=== PATIENT | male | born 1930 | race Caucasian/White ===

== ENCOUNTER 2020-05-06 11:09 | Inpatient (IN) | payer MEDICARE, OTHER ==
[~2020-05-06] VITALS: Ht 182 cm; Wt 86.4 kg
[2020-05-06] VITALS (7 sets, daily range): BP systolic 106–139; BP diastolic 56–73
[2020-05-06] MEDS ORDERED: LACTATED RINGERS 1,000 ML IV ONE ×2 (11:32→14:14)
[2020-05-06 11:33] LABS: ABG BASE EXCESS -0.7 MMOL/L (-2.5-2.5); ABG OXYGEN SATURATION 94 % (94-100); ABG PCO2 28 MMHG (35-45); ABG PH 7.51 (7.37-7.43); ABG PO2 66 MMHG (79-93); ABG TCO2 22.8 MMOL/L (21.0-31.0); ALLENS TEST YES-POS; INSPIRED O2 4 L
[2020-05-06 11:34] LABS: PATIENT TEMP 99.6; VENTILATOR NO
[2020-05-06 11:44] LABS: BASOPHILS % (AUTO) 0 % (0-10); EOSINOPHILS % (AUTO) 0 % (0-10); MEAN CORPUSCULAR VOLUME 97 fL (80-99); NEUTROPHILS # (AUTO) 4.9 10^3/uL (1.8-7.8)
[2020-05-06] MEDS ORDERED: ACETAMINOPHEN 500 MG TAB (TYLENOL) PO PRN ×2 (11:45→14:30)
[2020-05-06] MEDS ORDERED: PIPERACILLIN SODIUM/TAZOBACTAM 4.5 GM in NS (IVPB) 100 ML IV ONE (11:45)
[2020-05-06] MEDS ORDERED: VANCOMYCIN 2000 MG/NS 500 ML IVPB IV NR ×2 (11:45)
[2020-05-06] MEDS ORDERED: VANCOMYCIN INJECTION 1,000 MG in NS (IVPB) 250 ML IV SCH (11:45)
[2020-05-06 11:46] LABS: HEMATOCRIT 40 % (40-54); HEMOGLOBIN 13.9 g/dL (13.3-17.7); LYMPHOCYTES # (AUTO) 0.4 10^3/uL (1.0-4.0); LYMPHOCYTES % (AUTO) 7 % (12-44); MEAN CORPUSCULAR HEMOGLOBIN 34 pg (25-34); MEAN CORPUSCULAR HGB CONC 35 g/dL (32-36); MEAN PLATELET VOLUME 9.9 fL (9.0-12.2); MONOCYTES # (AUTO) 0.2 10^3/uL (0.0-1.0); MONOCYTES % (AUTO) 4 % (0-12); NEUTROPHILS % (AUTO) 88 % (42-75); PLATELET COUNT 124 10^3/uL (130-400); WHITE BLOOD COUNT 5.5 10^3/uL (4.3-11.0)
--- NOTE | 2020-05-06 11:46 | ED Respiratory ---
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 He was diagnosed a little over a week ago with COVID 19. Today he called EMS from his home because he was having increasing worsening shortness of breath. No mention of oxygen saturations but they did put him on 2 L by nasal cannula and had bumped up to 4 L by the time he arrived in the ER. His sats were in the upper 80s with mildly labored breathing. EMS also reports he vomited 4 times on route. They were EMT crew and were not able to give him any anti-emetics. Patient denies he has any known drug allergies. He has profound hardness of hearing and is also hypoxic and therefore a very difficult historian. EMS do report he has some baseline dementia. EMS gave the phone number for family which did not connect to any family member. The patient's never been in this hospital before. When asked why EMS took this patient in respiratory distress across [place] to [place] instead of the emergency room and [place] they were told to come here because [place] does not accept COVID 19 patients. The patient's daughter called the ER. The patient only uses lisinopril 20 mg daily. The patient has no predetermined CODE STATUS. Full code. Family states the patient is on oxygen at baseline at home. Allergies and Home Medications Allergies Coded Allergies: codeine (Verified Allergy, Unknown, 05/06/20) Patient Home Medication List Home Medication List Reviewed: Yes Review of Systems Review of Systems Constitutional: see HPI (Limited review of systems secondary to patient's clinical presentation.); No chills; fever; No malaise EENTM: No ear discharge, No ear pain Respiratory: No cough; short of breath Cardiovascular: No chest pain, No edema Gastrointestinal: nausea, vomiting All Other Systems Reviewed Negative Unless Noted: Yes Past Rhhqhcx-Vrlgtj-Vvwddi Hx Patient Social History Alcohol Use: Denies Use Recreational Drug Use: No (his only) Smoking Status: Unknown if Ever Smoked Recent Foreign Travel: No Contact w/Someone Who Travel: No Recent Infectious Disease Expo: No Physical Exam Vital Signs - First Documented 05/06/20 11:14 Temp 37.5 Pulse 81 Resp 20 B/P (MAP) 138/77 (97) Pulse Ox 91 O2 Delivery Nasal Cannula Capillary Refill : Less Than 3 Seconds Height: '" Weight: lbs. oz. kg; 30.00 BMI Method: General Appearance: moderate distress Eyes: Bilateral Eye Normal Inspection, Bilateral Eye PERRL, Bilateral Eye EOMI HEENT: PERRL/EOMI, normal ENT inspection, pharynx normal Neck: full range of motion, supple, normal inspection Respiratory: respiratory distress (dugy-vj-tuiklbug with oxygen sats in the upper 80s on 4 L by nasal cannula.), rhonchi (bilateral) Cardiovascular: normal peripheral pulses, regular rate, rhythm Gastrointestinal: normal bowel sounds, non tender, soft Extremities: non-tender, normal inspection, normal capillary refill Focused Exam Sepsis Stage: Sepsis Possible Source: Pulmonary Lactate Level 05/06/20 11:26: Lactic Acid Level 2.03*H Time of Focused Exam: 13:38 Respiratory: Lungs Clear, Normal Breath Sounds, No Accessory Muscle Use, Respiratory Distress (96% on 8 L by oxygen mask.) Cardiovascular: Regular Rate, Rhythm, No Edema, Normal Peripheral Pulses Capillary Refill: Less Than 3 Seconds Peripheral Pulses: 2+ Radial Pulses (R), 2+ Radial Pulses (L) Skin: normal color, warm/dry Lactic Acid Level Laboratory Tests Test 05/06/20 11:26 Lactic Acid Level 2.03 MMOL/L (0.50-2.00) *H Within 3hrs of presentation: Admin fluids, Admin 30ml/kg IBW due to BMI>30 (reduced fluids based on ideal body weight and was COVID-19), Admin ABX, Blood cultures prior to ABX's, Focus exam, Lactate level Progress/Results/Core Measures Suspected Sepsis Recent Fever Within 48 Hours: Yes Infection Criteria Present: Documented Infection New/Unexplained Altered Menta: No Sepsis Screen: No Definite Risk SIRS Temperature: Pulse: 81 Respiratory Rate: 20 Laboratory Tests 05/06/20 11:26: White Blood Count 5.5 Blood Pressure 138 /77 Mean: 97 05/06/20 11:26: Lactic Acid Level 2.03*H Laboratory Tests 05/06/20 11:26: Creatinine 1.63H, INR Comment 1.0, Platelet Count 124L, Total Bilirubin 0.7 Results/Orders Lab Results Laboratory Tests Test 05/06/20 11:26 05/06/20 13:05 Range/Units White Blood Count 5.5 4.3-11.0 10^3/uL Red Blood Count 4.12 L 4.30-5.52 10^6/uL Hemoglobin 13.9 13.3-17.7 g/dL Hematocrit 40 40-54 % Mean Corpuscular Volume 97 80-99 fL Mean Corpuscular Hemoglobin 34 25-34 pg Mean Corpuscular Hemoglobin Concent 35 32-36 g/dL Red Cell Distribution Width 12.7 10.0-14.5 % Platelet Count 124 L 130-400 10^3/uL Mean Platelet Volume 9.9 9.0-12.2 fL Immature Granulocyte % (Auto) 1 % Neutrophils (%) (Auto) 88 H 42-75 % Lymphocytes (%) (Auto) 7 L 12-44 % Monocytes (%) (Auto) 4 0-12 % Eosinophils (%) (Auto) 0 0-10 % Basophils (%) (Auto) 0 0-10 % Neutrophils # (Auto) 4.9 1.8-7.8 10^3/uL Lymphocytes # (Auto) 0.4 L 1.0-4.0 10^3/uL Monocytes # (Auto) 0.2 0.0-1.0 10^3/uL Eosinophils # (Auto) 0.0 0.0-0.3 10^3/uL Basophils # (Auto) 0.0 0.0-0.1 10^3/uL Immature Granulocyte # (Auto) 0.1 0.0-0.1 10^3/uL Neutrophils % (Manual) 87 % Lymphocytes % (Manual) 9 % Monocytes % (Manual) 4 % Blood Morphology Comment NORMAL Prothrombin Time 13.3 12.2-14.7 SEC INR Comment 1.0 0.8-1.4 Activated Partial Thromboplast Time 31 24-35 SEC D-Dimer 6.37 H 0.00-0.49 UG/ML Blood Gas Puncture Site LT RAD Blood Gas Patient Temperature 99.6 Arterial Blood pH 7.51 H 7.37-7.43 Arterial Blood Partial Pressure CO2 28 L 35-45 MMHG Arterial Blood Partial Pressure O2 66 L 79-93 MMHG Arterial Blood HCO3 22 L 23-27 MMOL/L Arterial Blood Total CO2 22.8 21.0-31.0 MMOL/L Arterial Blood Oxygen Saturation 94 94-100 % Arterial Blood Base Excess -0.7 -2.5-2.5 MMOL/L Thierno Test YES-POS Blood Gas Ventilator Setting NO Blood Gas Inspired Oxygen 4 L Sodium Level 136 135-145 MMOL/L Potassium Level 3.6 3.6-5.0 MMOL/L Chloride Level 101 98-107 MMOL/L Carbon Dioxide Level 22 21-32 MMOL/L Anion Gap 13 5-14 MMOL/L Blood Urea Nitrogen 30 H 7-18 MG/DL Creatinine 1.63 H 0.60-1.30 MG/DL Estimat Glomerular Filtration Rate 40 BUN/Creatinine Ratio 18 Glucose Level 112 H 70-105 MG/DL Lactic Acid Level 2.03 *H 0.50-2.00 MMOL/L Calcium Level 8.6 8.5-10.1 MG/DL Corrected Calcium 8.8 8.5-10.1 MG/DL Total Bilirubin 0.7 0.1-1.0 MG/DL Aspartate Amino Transf (AST/SGOT) 34 5-34 U/L Alanine Aminotransferase (ALT/SGPT) 37 0-55 U/L Alkaline Phosphatase 46 40-136 U/L C-Reactive Protein High Sensitivity 6.45 H 0.00-0.50 MG/DL Total Protein 6.4 6.4-8.2 GM/DL Albumin 3.7 3.2-4.5 GM/DL Procalcitonin 0.13 H <0.10 NG/ML My Orders Orders - EMIL GARCIA Arterial Blood Gas (05/06/20 11:30) Cbc With Automated Diff (05/06/20 11:32) Comprehensive Metabolic Panel (05/06/20 11:32) Blood Culture (05/06/20 11:32) Sputum Culture (05/06/20 11:32) Urinalysis (05/06/20 11:32) Urine Culture (05/06/20 11:32) Protime With Inr (05/06/20 11:32) Partial Thromboplastin Time (05/06/20 11:32) Chest 1 View, Ap/Pa Only (05/06/20 11:32) Acetaminophen Tablet (Tylenol Tablet) (05/06/20 11:45) Ed Iv/Invasive Line Start (05/06/20 11:32) Ed Iv/Invasive Line Start (05/06/20 11:32) Vital Signs Adult Sepsis Patie Q15M (05/06/20 11:32) O2 (05/06/20 11:32) Remove Rings In Anticipation O (05/06/20 11:32) Lactic Acid Analyzer (05/06/20 11:32) Influenza A And B Antigens (05/06/20 11:32) Lactated Ringers (Lr 1000 Ml Iv Solution (05/06/20 11:32) Piperacillin Sodium/Tazobactam (Zosyn Vi (05/06/20 11:45) Vancomycin Injection (Vancomycin Injecti (05/06/20 11:45) Dexamethasone Injection (Decadron Inje (05/06/20 11:45) Vancomycin Injection (Vancomycin Injecti (05/06/20 11:45) Manual Differential (05/06/20 11:26) Ondansetron Injection (Zofran Injectio (05/06/20 12:00) Hs C Reactive Protein (05/06/20 11:51) Procalcitonin (Pct) (05/06/20 11:51) Fibrin Degradation Products (05/06/20 11:51) Medications Given in ED Current Medications Medications Dose Ordered Sig/Yeni Route Start Time Stop Time Status Last Admin Dose Admin Acetaminophen 1,000 mg ONCE PRN PO 05/06/20 11:45 05/06/20 12:14 DC 05/06/20 12:14 1,000 MG Dexamethasone Sodium Phosphate 6 mg ONCE ONCE IV 05/06/20 11:45 05/06/20 11:46 DC 05/06/20 12:14 6 MG Lactated Ringer's 1,000 ml @ 0 mls/hr Q0M ONCE IV 05/06/20 11:32 05/06/20 11:39 DC 05/06/20 12:14 1,000 MLS/HR Ondansetron HCl 8 mg ONCE ONCE IVP 05/06/20 12:00 05/06/20 12:01 DC 05/06/20 12:14 8 MG Piperacillin Sod/ Tazobactam Sod 4.5 gm/Sodium Chloride 100 ml @ 200 mls/hr ONCE ONCE IV 05/06/20 11:45 05/06/20 12:14 DC 05/06/20 12:14 200 MLS/HR Vital Signs/I&O 05/06/20 11:14 Temp 37.5 Pulse 81 Resp 20 B/P (MAP) 138/77 (97) Pulse Ox 91 O2 Delivery Nasal Cannula Capillary Refill : Less Than 3 Seconds Blood Pressure Mean: 97 Progress Note : Time: 11:49 Progress Note Plan to do a septic workup however because of his COVID-19 status were going to keep him dry and just use 1 L of lactated Ringer's. We are going to get an ABG and we have bumped him up to 8 L by oxygen mask which is keeping his oxygen saturation 94-95%. We have a chest x-ray and sputum cultures if possible. Because of his rhonchorous breath sounds and copious vomit all over his shirt I suspect he may have aspirated we are going to cover him with Zosyn and vancomycin. 8 mg Zofran IV. Dexamethasone. Pro calcitonin, CRP, d-dimer. Diagnostic Imaging Diagonstic Imaging: Xray Plain Films/CT/US/NM/MRI: chest Reviewed: Reviewed by Me Departure Communication (Admissions) Time/Spoke to Admitting Phy: 12:[address] Mireles and she agrees to admit the patient to cardiac stepdown. Impression Primary Impression: COVID-19 Additional Impressions: Acute on chronic respiratory failure with hypoxemia Pneumonia Qualified Codes: J18.9 - Pneumonia, unspecified organism Sepsis Qualified Codes: A41.9 - Sepsis, unspecified organism; R65.20 - Severe sepsis without septic shock; J96.01 - Acute respiratory failure with hypoxia Disposition: ADMITTED INPATIENT Condition: Stable Admissions Decision to Admit Reason: Admit from ER (General) Decision to Admit/Date: May 06, 2020 Time/Decision to Admit Time: 12:00 Departure-Patient Inst. Referrals: UNKNOWN (PCP/Family) Primary Care Physician EMIL GARCIA May 06, 2020 11:46
[2020-05-06 11:51] LABS: ALBUMIN 3.7 GM/DL (3.2-4.5); POTASSIUM 3.6 MMOL/L (3.6-5.0)
[2020-05-06 11:52] LABS: CALCIUM 8.6 MG/DL (8.5-10.1)
[2020-05-06 11:54] LABS: TOTAL PROTEIN 6.4 GM/DL (6.4-8.2)
[2020-05-06 11:55] LABS: BILIRUBIN,TOTAL 0.7 MG/DL (0.1-1.0)
[2020-05-06 11:57] LABS: CREATININE SERUM 1.63 MG/DL (0.60-1.30)
[2020-05-06 12:00] LABS: PROTHROMBIN TIME PATIENT 13.3 SEC (12.2-14.7)
[2020-05-06] MEDS ORDERED: ONDANSETRON 4 MG/2 ML (SDV) Z0FRAN IVP ONE (12:00)
[2020-05-06 12:12] LABS: LYMPHOCYTES % (MANUAL) 9 %; MONOCYTES % (MANUAL) 4 %; NEUTROPHILS % (MANUAL) 87 %; RBC MORPH NORMAL
--- NOTE | 2020-05-06 13:03 | Diagnostic Imaging Report ---
EXAMINATION: Chest 1 view HISTORY: sepsis COMPARISON: None available. FINDINGS: Heart size and pulmonary vasculature are normal. Patchy left basilar airspace opacities. No pleural effusion or pneumothorax. The osseous structures are intact. IMPRESSION: 1. Left basilar atelectasis or consolidation. Dictated by: Dictated on workstation # [id number]
[2020-05-06 13:18] LABS: BILIRUBIN,URINE NEGATIVE (NEGATIVE); CLARITY,URINE CLEAR; COLOR,URINE YELLOW; GLUCOSE, URINE (UA) NEGATIVE (NEGATIVE); KETONES,URINE NEGATIVE (NEGATIVE); LEUKOCYTE ESTERASE ,URINE NEGATIVE (NEGATIVE); NITRITE,URINE NEGATIVE (NEGATIVE); PH,URINE 5.5 (5-9); PROTEIN,URINE 2+ (NEGATIVE)
[2020-05-06 13:29] LABS: AMORPHOUS SEDIMENT,UR RARE AMOR URATES /LPF; BACTERIA,URINE TRACE /HPF; WBC,URINE RARE /HPF
[2020-05-06] MEDS ORDERED: IBUPROFEN 800 MG (MOTRIN) TAB PO PRN (14:30)
[2020-05-06] MEDS ORDERED: ONDANSETRON 4 MG/2 ML (SDV) Z0FRAN IV PRN (14:30)
[2020-05-06] MEDS: LACTATED RINGERS 1,000 ML IV SCH ×2 (14:36→21:19)
--- NOTE | 2020-05-06 14:36 | NUR ---
CR 1.63; CR CL ~38 (USED ADJ WT 86 KG); ACTUAL WT 100 KG; VANCO 2000 MG IV GIVEN IN ER; CONTINUE WITH VANCO 1500 MG IV DAILY X 2 MORE DAYS
[2020-05-06] MEDS ORDERED: CATHETER FLUSH 10 ML SYR IV PRN (14:45)
[2020-05-06] MEDS ORDERED: ENOXAPARIN 40 MG/0.4 ML (LOVENOX) SYR SC SCH (15:00)
[2020-05-06] MEDS ORDERED: LIDOCAINE UROJET 2% GEL 10 ML PKG ONE (15:10)
[2020-05-06] MEDS ORDERED: LIDOCAINE UROJET 2% GEL 10 ML PKG TOP NR (15:15)
[2020-05-06] MEDS: PIPERACILLIN/TAZO 4.5 GM/NS 100 ML IV SCH ×2 (18:03)
[2020-05-06] MEDS: RT-ALBUTEROL INHALER HFA (VENTOLIN HFA) 18 GM IH SCH ×2 (20:03→21:55)
[2020-05-07] VITALS (8 sets, daily range): BP systolic 107–149; BP diastolic 55–70
[2020-05-07 03:26] LABS: BASOPHILS % (AUTO) 0 % (0-10); EOSINOPHILS % (AUTO) 0 % (0-10); HEMATOCRIT 31 % (40-54); HEMOGLOBIN 10.9 g/dL (13.3-17.7); LYMPHOCYTES # (AUTO) 0.3 10^3/uL (1.0-4.0); LYMPHOCYTES % (AUTO) 9 % (12-44); MEAN CORPUSCULAR HEMOGLOBIN 34 pg (25-34); MEAN CORPUSCULAR HGB CONC 35 g/dL (32-36); MEAN CORPUSCULAR VOLUME 97 fL (80-99); MONOCYTES # (AUTO) 0.1 10^3/uL (0.0-1.0); MONOCYTES % (AUTO) 4 % (0-12); NEUTROPHILS # (AUTO) 2.5 10^3/uL (1.8-7.8); NEUTROPHILS % (AUTO) 86 % (42-75); PLATELET COUNT 85 10^3/uL (130-400)
[2020-05-07 03:41] LABS: ALBUMIN 2.9 GM/DL (3.2-4.5); POTASSIUM 3.8 MMOL/L (3.6-5.0)
[2020-05-07 03:42] LABS: CALCIUM 7.7 MG/DL (8.5-10.1)
[2020-05-07 03:43] LABS: TOTAL PROTEIN 5.1 GM/DL (6.4-8.2)
[2020-05-07 03:45] LABS: BILIRUBIN,TOTAL 0.4 MG/DL (0.1-1.0)
[2020-05-07 03:47] LABS: CREATININE SERUM 1.56 MG/DL (0.60-1.30)
[2020-05-07] MEDS: PIPERACILLIN/TAZO 4.5 GM/NS 100 ML IV SCH ×6 (03:57→20:32)
[2020-05-07] MEDS: LACTATED RINGERS 1,000 ML IV SCH ×2 (03:57→13:28)
[2020-05-07] MEDS: RT-ALBUTEROL INHALER HFA (VENTOLIN HFA) 18 GM IH SCH ×6 (04:22→22:44)
[2020-05-07] MEDS ORDERED: REMDESIVIR INJ (NON-FORMULARY) 200 MG in NS (IVPB) 210 ML IV NR (08:45)
--- NOTE | 2020-05-07 08:46 | Pulmonary Consultation ---
History of Present Illness History of Present Illness Date Seen by Provider: May 07, 2020 Time Seen by Provider: 08:41 Date of Admission History of Present Illness 89yo poor historian with recent dx of COVID 1 wk ago presented to ED via EMS from [place] secondary to worsening SOB and n/v. Pt was found to be hypoxic and was placed on 4 liter NC. hypoxia and continued to worsen and is currently on a oxy mask. No prior episodes like this in the past. Allergies and Home Medications Allergies Coded Allergies: codeine (Verified Allergy, Unknown, 05/06/20) Past Sovwqay-Ocymgv-Snuaeb Hx Patient Social History Alcohol Use: Denies Use Recreational Drug Use: No (his only) Smoking Status: Unknown if Ever Smoked 2nd Hand Smoke Exposure: No Recent Foreign Travel: No Contact w/Someone Who Travel: No Recent Infectious Disease Expo: Yes Recent Hopitalizations: Yes (COVID 19) Immunizations Up To Date Tetanus Booster (TDap): Unknown Family Medical History Cardiovascular disease G8 BROTHER Cervical cancer 19 MOTHER Diabetes mellitus G8 BROTHER Myocardial infarction G8 BROTHER Review of Systems Time Seen by Provider: 08:45 Sepsis Event Evaluation Height, Weight, BMI Height: '" Weight: lbs. oz. kg; 26.71 BMI Method: Exam Exam Vital Signs Date Time Temp Pulse Resp B/P (MAP) Pulse Ox O2 Delivery O2 Flow Rate FiO2 05/07/20 07:51 95 OxyMask 5.00 05/07/20 04:22 98 OxyMask 5.00 05/07/20 04:00 45 16 132/66 (88) OxyMask 5.00 05/07/20 04:00 OxyMask 5.00 05/07/20 03:55 47 05/07/20 00:00 OxyMask 8.00 05/07/20 00:00 35.8 58 18 107/55 (72) 93 OxyMask 5.00 05/06/20 21:56 98 OxyMask 10.00 05/06/20 21:00 93 OxyMask 8.00 05/06/20 20:00 35.9 47 18 122/60 (80) 96 OxyMask 8.00 05/06/20 20:00 OxyMask 8.00 05/06/20 16:06 OxyMask 8.00 05/06/20 15:58 35.9 66 22 139/64 (89) 94 OxyMask 8.00 05/06/20 14:50 37.3 63 20 108/73 96 OxyMask 8.00 05/06/20 14:36 55 97 05/06/20 14:35 55 22 115/65 (82) 97 OxyMask 8.00 05/06/20 14:15 54 20 106/68 (81) 97 OxyMask 8.00 05/06/20 14:09 OxyMask 8.00 05/06/20 14:07 36.3 63 20 108/56 (73) 96 OxyMask 8.00 05/06/20 13:59 37.0 76 18 132/75 95 OxyMask 8.00 05/06/20 11:14 37.5 81 20 138/77 (97) 91 Nasal Cannula I & O 05/07/20 07:00 Intake Total 1670 ml Output Total 625 ml Balance 1045 ml Height & Weight Height: '" Weight: lbs. oz. kg; 26.71 BMI Method: Respiratory: Lungs Clear, Normal Breath Sounds, No Accessory Muscle Use, Respiratory Distress (96% on 8 L by oxygen mask.) Cardiovascular: Regular Rate, Rhythm, No Edema, Normal Peripheral Pulses Capillary Refill: Less Than 3 Seconds Peripheral Pulses: 2+ Radial Pulses (R), 2+ Radial Pulses (L) Gastrointestinal: normal bowel sounds, non tender, soft Results Lab Laboratory Tests 05/06/20 11:26 05/07/20 03:12 Assessment/Plan Assessment/Plan Acute respiratory failure secondary to COVID -19 -Pt is outside of window for Remdesivir -Symptoms started on 04/24 -Will give convalescent plasma -Change oxy mask to Vapotherm -Decadron -Increase Lovenox to theraputic dosing PNA -Fermin culture -Continue Zosyn and Vanco for now -IS Bradycardia -Not currently on BB or CCB -Check EKG -Check troponin -Consult cardiology Chronic dementia Anemia -Monitor -Protonix TOMEKA JOYNER DO May 07, 2020 08:46
[2020-05-07 10:52] LABS: MAGNESIUM 1.9 MG/DL (1.6-2.4); PHOSPHORUS 3.1 MG/DL (2.3-4.7)
[2020-05-07] MEDS ORDERED: VANCOMYCIN 1500 MG/NS 500 ML IVPB IV SCH ×2 (12:00)
[2020-05-07] MEDS ORDERED: UBID100C44 PO (12:31)
[2020-05-07] MEDS ORDERED: CHOL10002 PO (12:31)
[2020-05-07] MEDS ORDERED: LISI-552 PO (12:31)
--- NOTE | 2020-05-07 12:31 | NUR ---
SPOKE WITH THE PTS (CHARMAINE) AND CALLED [facility] TO COMPLETE THE MED REC LISINOPRIL 20MG WAS LAST FILLED 04-11-2020 #90/90DS PT WAS GIVEN DEXAMETHASONE 6MG #7 ON 04-28-2020 BUT ACCORDING TO CHARMAINE PT FINISHED THIS THERAPY WHEN I CALLED [facility] THE PHARMACIST LET ME KNOW ON 04-28-2020 THE PT WAS GIVEN A SCRIPT FOR XARELTO 10MG #30/30DS (CHARMAINE DID NOT MENTION THIS MEDICATION) BUT SHORTLY AFTER IT WAS PICKED UP CHARMAINE CALLED AND SPOKE WITH THE PHARMACIST AND LET HER KNOW THAT THIS MEDICATION WAS ONLY PRESCRIBED TO THE PT BC HE WAS COVID +. CHARMAINE WENT ON TO TELL THE [facility] THAT THE PT IS A "BLEEDER" AND NO DOES NOT NEED ANY MEDICATION LIKE THAT AND THAT SHE WOULD NOT BE GIVING HIM XARELTO. WHEN I SPOKE WITH THE [facility] TODAY SHE HAD BEEN CONCERNED AND WANTED ME TO KNOW THIS INFORMATION. I LET HER KNOW I WOULD PASS IT ALONG TO THE PROVIDER OTC MEDS: VIT D COQ10
--- NOTE | 2020-05-07 13:16 | Physical Therapy Evaluation ---
PT Evaluation-General Medical Diagnosis Admission Date May 06, 2020 at 13:30 Medical Diagnosis: ARF; COVID + Onset Date: May 06, 2020 Therapy Diagnosis Therapy Diagnosis: weakness; abn gait Precautions Precautions/Isolations: Airborne Isolation, Contact Isolation, Droplet Isolation, Fall Prevention Referral Physician: Petty Reason for Referral: Evaluation/Treatment Medical History Pertinent Medical History: Dementia Additional Medical History anemia Current History Admitted to [facility] with dx of acute respiratory failure paired with COVID +. Pt contacted EMS due to worsening SOA. Reviewed History: Yes Social History Home: Single Level Current Living Status: Alone Prior Prior Level of Function SCALE: Activities may be completed with or without assistive devices. 0-Vqlfkeyayk-icfuosv completes the activity by him/herself with no assistance from a helper. 5-Set-up or Clean-up Assistance-helper sets up or cleans up; patient completes activity. [place] assists only prior to or following the activity. 4-Supervision or Touching Assistance-helper provides verbal cues and/or touching/steadying and/or contact guard assistance as patient completes activity. Assistance may be provided throughout the activity or intermittently. 3-Partial/Moderate Assistance-helper does LESS THAN HALF the effort. [place] lifts, holds or supports trunk or limbs, but provides less than half the effort. 2-Substantial/Maximal Assistance-helper does MORE THAN HALF the effort. [place] lifts or holds trunk or limbs and provides more than half the effort. 5-Ybzeandcu-khtall does ALL the effort. Patient does none of the effort to complete the activity. Or, the assistance of 2 or more helpers is required for the patient to complete the activity. If activity was not attempted, code reason: 7-Patient Refused. 9-Not Applicable-not attempted and the patient did not perform the activity before the current illness, exacerbation or injury. 10-Not Attempted due to Environmental Limitations-(lack of equipment, weather restraints, etc.). 88-Not Attempted due to Medical Conditions or Safety Concerns. Bed Mobility: 6 Transfers (B,C,W/C): 6 Gait: 6 PT Evaluation-Current Subjective Pt agrees to PT. Due to limited hearing and ability to understand this therapist with mask and face shield, history difficult to obtain. Pt/Family Goals "I want to go home" Objective Patient Orientation: Person, Confused (slight), Place, Time, Situation Attachments: Oxygen (in situ during and post treatment. ), Mayes Catheter, IV Bed alarm activated post treatment with bedrails up x 4 ROM/Strength ROM Lower Extremities WFL Strength Lower Extremities grossly 4-/5 throughout Integumentary/Posture Integumentary Refer to nursing notes for full assessment. Bowel Incontinence: No Bladder Incontinence: Mayes Cath Posture Rounded shoulders. Neuromuscular (Tone, Coordination, Reflexes) intact and functional Sensory Vision: Functional Hearing: Impaired Hand Dominance: Right Sensation Right Lower Extremit: Intact Sensation Left Lower Extremity: Intact Transfers Roll Left to Right (QC): 3 Sit to Lying (QC): 3 Lying to Sitting/Side of Bed(Q: 3 Sit to Stand (QC): 3 Chair/Gnt-qg-Kksji Xfer(QC): 3 (SPT to the commode with FWW with min assist for safety. ) Sat EOB several minutes with SBA. Pt transferred to the commode with FWW with min assist and cues for safety. Sat several minutes, unable to complete a BM but did expel gas. Pt back to bed post treatment with needs met and SCD's in place. Balance Sitting Static: Normal Sitting Dynamic: Normal Standing Static: Fair Standing Dynamic: Fair Assessment/Needs Pt admitted with respiratory failure with pneumonia and COVID +. He presents with functional weakness and balance deficits that impair functional mobility and ability to move without assist. He will benefit from skilled PT to address these deficits and allow him to return home as before. Rehab Potential: Fair Post Rehab Potential-Barriers: advanced age PT Penitentiary Goals Penitentiary Goals PT Director Of Corporate Strategy Goals Time Frame: May 21, 2020 Roll Left & Right (QC): 6 Sit to Lying (QC): 6 Lying-Sitting on Side/Bed(QC): 6 Sit to Stand (QC): 6 Chair/Mpi-ks-Ggrev Xfer(QC): 6 Walk 50ft with 2 Turns (QC): 6 Walk 150 ft (QC): 5 PT Plan Problem List Problem List: Activity Tolerance, Functional Strength, Safety, Balance, Gait, Transfer, Bed Mobility Treatment/Plan Treatment Plan: Continue Plan of Care Treatment Plan: Bed Mobility, Education, Functional Activity Lin, Functional Strength, Gait, Safety, Therapeutic Exercise, Transfers Treatment Duration: May 21, 2020 Frequency: 6 times per week Estimated Hrs Per Day: .5 hour per day Patient and/or Family Agrees t: Yes Safety Risks/Education Patient Education: Transfer Techniques, Safety Issues Teaching Recipient: Patient Teaching Methods: Demonstration, Discussion Response to Teaching: Reinforcement Needed Discharge Recommendations Therapy Discharge Recommendati: Post Acute PT Time/GCodes Time In: 1135 Time Out: 1207 Total Billed Treatment Time: 32 Total Billed Treatment visit EVM 15 FA 17 JONATAN KING PT May 07, 2020 13:16
--- NOTE | 2020-05-07 13:59 | Progress Note - Cardiology ---
Cardiology SOAP Progress Note Objective: I&O/Vital Signs 05/07/20 05/07/20 05/07/20 05/07/20 03:55 04:00 04:00 04:22 Pulse 47 45 Resp 16 B/P (MAP) 132/66 (88) Pulse Ox 98 O2 Delivery OxyMask OxyMask OxyMask O2 Flow Rate 5.00 5.00 5.00 05/07/20 05/07/20 05/07/20 05/07/20 07:46 07:51 08:00 09:37 Pulse 44 Pulse Ox 95 93 O2 Delivery OxyMask OxyMask Nasal Cannula O2 Flow Rate 5.00 5.00 5.00 05/07/20 12:07 Pulse 65 Resp 20 B/P (MAP) 149/70 (96) Pulse Ox 93 O2 Delivery Nasal Cannula O2 Flow Rate 5.00 05/07/20 00:00 Intake Total 1670 ml Output Total 500 ml Balance 1170 ml Skin: normal color, warm/dry Results/Procedures: Labs Laboratory Tests 05/06/20 14:10: Lactic Acid Level 1.05 05/07/20 03:12: White Blood Count 3.0L, Red Blood Count 3.21L, Hemoglobin 10.9#L, Hematocrit 31L , Mean Corpuscular Volume 97, Mean Corpuscular Hemoglobin 34, Mean Corpuscular Hemoglobin Concent 35, Red Cell Distribution Width 12.9, Platelet Count 85L, Mean Platelet Volume 10.0, Immature Granulocyte % (Auto) 1, Neutrophils (%) (Auto) 86H, Lymphocytes (%) (Auto) 9L, Monocytes (%) (Auto) 4, Eosinophils (%) (Auto) 0, Basophils (%) (Auto) 0, Neutrophils # (Auto) 2.5, Lymphocytes # (Auto) 0.3L, Monocytes # (Auto) 0.1, Eosinophils # (Auto) 0.0, Basophils # (Auto) 0.0, Immature Granulocyte # (Auto) 0.0, Sodium Level 138, Potassium Level 3.8, Chloride Level 106, Carbon Dioxide Level 23, Anion Gap 9, Blood Urea Nitrogen 27H, Creatinine 1.56H, Estimat Glomerular Filtration Rate 42, BUN/Creatinine Ratio 17, Glucose Level 128H, Calcium Level 7.7L, Corrected Calcium 8.6, Total Bilirubin 0.4, Aspartate Amino Transf (AST/SGOT) 26, Alanine Aminotransferase (ALT/SGPT) 26, Alkaline Phosphatase 34L, Total Protein 5.1L, Albumin 2.9L 05/07/20 09:45: Phosphorus Level 3.1, Magnesium Level 1.9 05/07/20 12:00: Troponin I 0.030H Microbiology 05/06/20 Influenza Types A,B Antigen (EDMUNDO) - Final, Complete A/P: Assessment: In an effort to limit COVID transmission, I have not seen the patient. I have relied on Dr Dove's history and physical of 05/07/20. I have seen the ECG. I have seen telemetry. I have seen the labs. The patient is consistently exhibiting normal sinus rhythm. Sometimes the rate is in the 40s (sinus, asymptomatic). ECG does not show any rhythm abnormality. ECG does not show any evidence of AK or ischemia. Minimal troponin elevation is likely related to the hypoxia he presented with. There do not appear to be any acute cardiac issues at this time. We will remain on standby for any acute cardiac problems. CYNDY PAYNE MD FACP FAC CCDS May 07, 2020 13:59
[2020-05-07] MEDS: ENOXAPARIN 100 MG/1 ML (LOVENOX) SYR SC SCH ×2 (14:14→20:33)
--- NOTE | 2020-05-07 15:41 | NUR ---
"RD ASSESSMENT PMHx: COVID-19; dementia; unknown other PMH PT INTERACTION: Note pt is currently in COVID isolation. Note pt is a poor historian. Note all diet information gathered for nutrition assessment is per chart review. Note PO intake of 0% x1 recorded meal. Note no BM has been recorded, and pt not currently on bowel regimen. Note unable to determine recent wt hx. ABNORMAL NUTRITION-RELATED LAB VALUES LOW: Ca 7.7; alkphos 34; Pro 5.1; alb 2.9 HIGH: BUN 27; cr 1.56; glu 128 Est. kcal needs: 1825 kcal | 20 kcal/kg Est. Pro needs: 92 g Pro | 1.0 g Pro/kg PES STATEMENT: Inadequate oral intake (NI-2.1) related to loss of appetite as evidenced by chart review | PO intake 0% x1 recorded meal INTERVENTION: Continue with current diet order of Regular diet. Add Ensure Enlive (vary) to meals TID, for increased kcal intake. Provides 350 kcal and 13 g Pro per serving. Will continue to follow and reassess as pt needs, intake, and status change. Christina Massey, MS RD LD"
[2020-05-07] MEDS ORDERED: NS IV 500 ML 500 ML ONE (18:18)
--- NOTE | 2020-05-07 21:28 | NUR ---
[facility] PLASMA STARTED @ 184 BY CARLOS DAVIDSON RN FINISHED @ 2022 BY THIS RN. V/S DOCUMENTED ON TRANSFUSION SHEET AND NOT IN TAR BY NIRAV. THIS RN ENTERED V/S FROM TRANSFUSION SHEET TO COMPUTER UNDER "TRANSFUSIONS". WILL PLACE TRANSFUSION SHEET IN PT CHART
[2020-05-08 00:17] VITALS: BP 121/64
[2020-05-08] MEDS: LACTATED RINGERS 1,000 ML IV SCH ×2 (02:34→16:45)
[2020-05-08] MEDS: RT-ALBUTEROL INHALER HFA (VENTOLIN HFA) 18 GM IH SCH ×6 (03:18→20:59)
[2020-05-08 03:46] LABS: EOSINOPHILS % (AUTO) 0 % (0-10); HEMOGLOBIN 10.3 g/dL (13.3-17.7); MEAN CORPUSCULAR HEMOGLOBIN 34 pg (25-34)
[2020-05-08 03:48] LABS: BASOPHILS % (AUTO) 0 % (0-10); HEMATOCRIT 30 % (40-54); LYMPHOCYTES # (AUTO) 0.3 10^3/uL (1.0-4.0); LYMPHOCYTES % (AUTO) 6 % (12-44); MEAN CORPUSCULAR HGB CONC 34 g/dL (32-36); MEAN CORPUSCULAR VOLUME 99 fL (80-99); MEAN PLATELET VOLUME 9.6 fL (9.0-12.2); MONOCYTES # (AUTO) 0.1 10^3/uL (0.0-1.0); MONOCYTES % (AUTO) 3 % (0-12); NEUTROPHILS % (AUTO) 89 % (42-75); PLATELET COUNT 121 10^3/uL (130-400); WHITE BLOOD COUNT 4.5 10^3/uL (4.3-11.0)
[2020-05-08] MEDS: PIPERACILLIN/TAZO 4.5 GM/NS 100 ML IV SCH ×6 (03:53→20:58)
[2020-05-08 04:00] VITALS: BP 153/72
[2020-05-08 04:08] LABS: ALBUMIN 2.9 GM/DL (3.2-4.5); POTASSIUM 3.5 MMOL/L (3.6-5.0)
[2020-05-08 04:09] LABS: CALCIUM 7.5 MG/DL (8.5-10.1)
[2020-05-08 04:10] LABS: TOTAL PROTEIN 5.2 GM/DL (6.4-8.2)
[2020-05-08 04:12] LABS: BILIRUBIN,TOTAL 0.4 MG/DL (0.1-1.0)
[2020-05-08 04:14] LABS: CREATININE SERUM 1.36 MG/DL (0.60-1.30); PHOSPHORUS 2.2 MG/DL (2.3-4.7)
[2020-05-08 04:17] LABS: MAGNESIUM 1.9 MG/DL (1.6-2.4)
--- NOTE | 2020-05-08 07:12 | Pulmonary Progress Note ---
Subjective Time Seen by a Provider: 07:10 Subjective/Events-last exam No complications noted. Sepsis Event Evaluation Height, Weight, BMI Height: '" Weight: lbs. oz. kg; 26.71 BMI Method: Focused Exam Lactate Level 05/06/20 11:26: Lactic Acid Level 2.03*H 05/06/20 14:10: Lactic Acid Level 1.05 Time of Focused Exam: 13:38 Exam Exam Vital Signs Date Time Temp Pulse Resp B/P (MAP) Pulse Ox O2 Delivery O2 Flow Rate FiO2 05/08/20 06:32 92 Nasal Cannula 4.00 05/08/20 04:00 High Flow N/C 5.00 05/08/20 04:00 54 18 153/72 (99) 95 High Flow N/C 5.00 05/08/20 01:00 47 05/08/20 00:17 36.1 47 18 121/64 (83) 94 High Flow N/C 5.00 05/08/20 00:00 High Flow N/C 5.00 05/07/20 22:44 93 Nasal Cannula 5.00 05/07/20 21:00 High Flow N/C 5.00 05/07/20 20:23 36.3 69 18 143/70 (94) 94 High Flow N/C 5.00 05/07/20 20:00 High Flow N/C 5.00 05/07/20 19:00 52 05/07/20 19:00 36.0 59 18 137/70 High Flow N/C 5.00 05/07/20 19:00 94 Nasal Cannula 5.00 05/07/20 18:45 37.0 62 18 146/62 High Flow N/C 5.00 05/07/20 16:00 OxyMask 5.00 05/07/20 15:51 37.0 62 17 146/62 (90) 93 Nasal Cannula 5.00 05/07/20 15:47 95 Nasal Cannula 5.00 05/07/20 12:46 59 05/07/20 12:07 65 20 149/70 (96) 93 Nasal Cannula 5.00 05/07/20 12:00 OxyMask 5.00 05/07/20 09:37 93 Nasal Cannula 5.00 05/07/20 09:00 93 OxyMask 8.00 05/07/20 08:00 OxyMask 5.00 05/07/20 07:51 95 OxyMask 5.00 05/07/20 07:46 44 I & O 05/08/20 07:00 Intake Total 475 ml Output Total 1075 ml Balance -600 ml Height & Weight Height: '" Weight: lbs. oz. kg; 26.71 BMI Method: General Appearance: No Apparent Distress, WD/WN HEENT: PERRL/EOMI, Pharynx Normal Respiratory: Lungs Clear, Normal Breath Sounds, No Accessory Muscle Use, Respiratory Distress (96% on 8 L by oxygen mask.) Cardiovascular: Regular Rate, Rhythm, No Edema, Normal Peripheral Pulses Capillary Refill: Less Than 3 Seconds Peripheral Pulses: 2+ Radial Pulses (R), 2+ Radial Pulses (L) Gastrointestinal: normal bowel sounds, non tender, soft Results Lab Laboratory Tests 05/06/20 11:26 05/07/20 03:12 05/08/20 02:57 Assessment/Plan Assessment/Plan Acute respiratory failure secondary to COVID -19 -Pt is outside of window for Remdesivir -Symptoms started on 04/24 - convalescent plasma -Currenlty on NC -Decadron - Lovenox theraputic dosing PNA -Fermin culture -Continue Zosyn and d/c Vanco -IS Bradycardia -Not currently on BB or CCB -Check EKG -Check troponin -Consult cardiology Chronic dementia Anemia -Monitor -Protonix TOMEKA JOYNER DO May 08, 2020 07:12
[2020-05-08] MEDS ORDERED: KCL 20 MEQ TAB (K-DUR) PO NR (07:15)
[2020-05-08 08:30] VITALS: BP 152/65
[2020-05-08] MEDS: PANTOPRAZOLE 40 MG (PROTONIX) VIAL IV SCH (08:38)
[2020-05-08] MEDS: ENOXAPARIN 100 MG/1 ML (LOVENOX) SYR SC SCH ×2 (08:39→21:50)
[2020-05-08] MEDS ORDERED: REMDESIVIR INJ (NON-FORMULARY) 100 MG in NS (IVPB) 230 ML IV SCH (09:00)
[2020-05-08 12:07] VITALS: BP 141/65
[2020-05-08] MEDS ORDERED: VANCOMYCIN 1500 MG/NS 500 ML IVPB IV SCH ×2 (14:00)
--- NOTE | 2020-05-08 14:57 | Physical Therapy Daily Note ---
PT Daily Note-Current Subjective Patient moved to 4th floor. Patient in recliner pre tx, agrees to PT, states he has pain in his groin from his catheter. Proper PPE donned by PT before entering room. Appearance Patient in recliner post tx with nurse call, phone, tray, all needs met, legs elevated, chair alarm on. Nursing notified of catheter pain. Mental Status Patient Orientation: Person, Confused Attachments: Oxygen, Mayes Catheter, IV Transfers SCALE: Activities may be completed with or without assistive devices. 6-Uppmosgzpg-ymztbxt completes the activity by him/herself with no assistance from a helper. 5-Set-up or Clean-up Assistance-helper sets up or cleans up; patient completes activity. [place] assists only prior to or following the activity. 4-Supervision or Touching Assistance-helper provides verbal cues and/or touching/steadying and/or contact guard assistance as patient completes activity. Assistance may be provided throughout the activity or intermittently. 3-Partial/Moderate Assistance-helper does LESS THAN HALF the effort. [place] lifts, holds or supports trunk or limbs, but provides less than half the effort. 2-Substantial/Maximal Assistance-helper does MORE THAN HALF the effort. [place] lifts or holds trunk or limbs and provides more than half the effort. 6-Goxqedfoe-wmefje does ALL the effort. Patient does none of the effort to complete the activity. Or, the assistance of 2 or more helpers is required for the patient to complete the activity. If activity was not attempted, code reason: 7-Patient Refused. 9-Not Applicable-not attempted and the patient did not perform the activity befo re the current illness, exacerbation or injury. 10-Not Attempted due to Environmental Limitations-(lack of equipment, weather re straints, etc.). 88-Not Attempted due to Medical Conditions or Safety Concerns. Sit to Stand (QC): 4 CGA, Patient was able to perform standing marching x20 and mini-squats x10 using a rolling walker for support. Patient started yelling/squealing about pain in his groin due to his catheter, wanted to walk to the restroom to urinate. This PT explained to patient that he cannot go to the restroom to urinate because he urinates into his catheter. Patient doesn't seem to understand this. Had patient sit back down and pain seemed to resolve immediately and he became calm again. Treatments standing, LE exercise Assessment Current Status: Poor Progress Patient very confused, he was able to stand with only CGA PT Lead Software Tester Goals Lead Software Tester Goals PT Lead Software Tester Goals Time Frame: May 21, 2020 Roll Left & Right (QC): 6 Sit to Lying (QC): 6 Lying-Sitting on Side/Bed(QC): 6 Sit to Stand (QC): 6 Chair/Nli-tc-Akvff Xfer(QC): 6 Walk 50ft with 2 Turns (QC): 6 Walk 150 ft (QC): 5 PT Plan Problem List Problem List: Activity Tolerance, Functional Strength, Safety, Balance, Gait, Transfer, Bed Mobility, ROM Treatment/Plan Treatment Plan: Continue Plan of Care Treatment Plan: Bed Mobility, Education, Functional Activity Lin, Functional Strength, Gait, Safety, Therapeutic Exercise, Transfers Treatment Duration: May 21, 2020 Frequency: 6 times per week Estimated Hrs Per Day: .5 hour per day Patient and/or Family Agrees t: Yes Safety Risks/Education Patient Education: Transfer Techniques, Correct Positioning, Safety Issues Teaching Recipient: Patient Teaching Methods: Demonstration, Discussion Response to Teaching: Reinforcement Needed Time/GCodes Time In: 1420 Time Out: 1433 Total Billed Treatment Time: 13 Total Billed Treatment 1 visit EX LUCI COLEMAN PT May 08, 2020 14:57
[2020-05-08 16:43] VITALS: BP 146/88
[2020-05-08 20:30] VITALS: BP 146/64
[2020-05-08] MEDS: RT-ALBUTEROL INHALER HFA (VENTOLIN HFA) 18 GM IH PRN (20:59)
[2020-05-09 00:38] VITALS: BP 144/68
[2020-05-09] MEDS: RT-ALBUTEROL INHALER HFA (VENTOLIN HFA) 18 GM IH SCH ×6 (02:30→22:50)
[2020-05-09 03:20] VITALS: BP 164/74
[2020-05-09] MEDS: PIPERACILLIN/TAZO 4.5 GM/NS 100 ML IV SCH ×6 (03:25→21:09)
[2020-05-09] MEDS: LACTATED RINGERS 1,000 ML IV SCH ×2 (05:00→18:59)
[2020-05-09 06:55] LABS: CALCIUM 7.7 MG/DL (8.5-10.1)
[2020-05-09 06:56] LABS: TOTAL PROTEIN 5.3 GM/DL (6.4-8.2)
[2020-05-09 06:58] LABS: BILIRUBIN,TOTAL 0.6 MG/DL (0.1-1.0)
[2020-05-09 07:00] LABS: CREATININE SERUM 1.33 MG/DL (0.60-1.30); PHOSPHORUS 1.6 MG/DL (2.3-4.7)
[2020-05-09 07:03] LABS: MAGNESIUM 1.9 MG/DL (1.6-2.4)
[2020-05-09 08:00] VITALS: BP 160/69
[2020-05-09 08:02] LABS: BASOPHILS % (AUTO) 0 % (0-10); EOSINOPHILS % (AUTO) 0 % (0-10); HEMATOCRIT 30 % (40-54); HEMOGLOBIN 10.2 g/dL (13.3-17.7); LYMPHOCYTES # (AUTO) 0.4 10^3/uL (1.0-4.0); LYMPHOCYTES % (AUTO) 12 % (12-44); MEAN CORPUSCULAR HEMOGLOBIN 33 pg (25-34); MEAN CORPUSCULAR HGB CONC 34 g/dL (32-36); MEAN CORPUSCULAR VOLUME 98 fL (80-99); MEAN PLATELET VOLUME 9.6 fL (9.0-12.2); MONOCYTES # (AUTO) 0.2 10^3/uL (0.0-1.0); MONOCYTES % (AUTO) 4 % (0-12); NEUTROPHILS # (AUTO) 2.7 10^3/uL (1.8-7.8); NEUTROPHILS % (AUTO) 77 % (42-75); PLATELET COUNT 124 10^3/uL (130-400); WHITE BLOOD COUNT 3.5 10^3/uL (4.3-11.0)
[2020-05-09] MEDS ORDERED: SODIUM PHOSPHATE INJ 15 MM in D5W 100 ML IVPB 100 ML IV NR (08:15)
[2020-05-09] MEDS: ENOXAPARIN 100 MG/1 ML (LOVENOX) SYR SC SCH ×2 (08:23→21:13)
[2020-05-09] MEDS: PANTOPRAZOLE 40 MG (PROTONIX) VIAL IV SCH (08:23)
[2020-05-09] MEDS: RT-ALBUTEROL INHALER HFA (VENTOLIN HFA) 18 GM IH PRN (08:24)
--- NOTE | 2020-05-09 10:57 | Physical Therapy Daily Note ---
PT Daily Note-Current Subjective Patient in bed pre tx, agrees to PT, has no complaints of pain. Proper PPE donned before entering room. Appearance Patient in recliner post tx with nurse call, phone, tray, all needs met, legs elevated, chair alarm on. Mental Status Patient Orientation: Person, Confused Attachments: Oxygen, Mayes Catheter, IV Transfers SCALE: Activities may be completed with or without assistive devices. 9-Puorisyrxy-wfyflcj completes the activity by him/herself with no assistance from a helper. 5-Set-up or Clean-up Assistance-helper sets up or cleans up; patient completes activity. [place] assists only prior to or following the activity. 4-Supervision or Touching Assistance-helper provides verbal cues and/or touching/steadying and/or contact guard assistance as patient completes activity. Assistance may be provided throughout the activity or intermittently. 3-Partial/Moderate Assistance-helper does LESS THAN HALF the effort. [place] lifts, holds or supports trunk or limbs, but provides less than half the effort. 2-Substantial/Maximal Assistance-helper does MORE THAN HALF the effort. [place] lifts or holds trunk or limbs and provides more than half the effort. 2-Gcetcyoai-jsgaco does ALL the effort. Patient does none of the effort to complete the activity. Or, the assistance of 2 or more helpers is required for the patient to complete the activity. If activity was not attempted, code reason: 7-Patient Refused. 9-Not Applicable-not attempted and the patient did not perform the activity before the current illness, exacerbation or injury. 10-Not Attempted due to Environmental Limitations-(lack of equipment, weather restraints, etc.). 88-Not Attempted due to Medical Conditions or Safety Concerns. Roll Left & Right (QC): 6 Lying to Sitting/Side of Bed(Q: 4 Sit to Stand (QC): 4 Chair/Eys-do-Pdjfd Xfer(QC): 4 Patient supine to sit with SBA, sit to stand with CGA, he ambulated about 5' to recliner and turned to sit with CGA, sat with CGA, cues for hand placement and safety. Patient has a urinary catheter, it was leaking when he stood, nursing notified. Patient has a lot of pain with his catheter. Exercises Seated Therapy Exercises: Ankle pumps, Long arc quads Seated Reps: 20 Treatments bed mobility and transfers, ambulation, LE exercise Assessment Current Status: Fair Progress Some exertion and SOB with activity but recovers fairly quickly with rest/sitting. However, patient coughs excessively (mask put on patient), patient also expels air heavily with activity, more like a large sigh than being SOB. PT Nurse Researcher Goals Mcc Goals PT Nurse Researcher Goals Time Frame: May 21, 2020 Roll Left & Right (QC): 6 Sit to Lying (QC): 6 Lying-Sitting on Side/Bed(QC): 6 Sit to Stand (QC): 6 Chair/Vsd-jk-Hhisr Xfer(QC): 6 Walk 50ft with 2 Turns (QC): 6 Walk 150 ft (QC): 5 PT Plan Problem List Problem List: Activity Tolerance, Functional Strength, Safety, Balance, Gait, Transfer, Bed Mobility, ROM Treatment/Plan Treatment Plan: Continue Plan of Care Treatment Plan: Bed Mobility, Education, Functional Activity Lin, Functional Strength, Gait, Safety, Therapeutic Exercise, Transfers Treatment Duration: May 21, 2020 Frequency: 6 times per week Estimated Hrs Per Day: .5 hour per day Patient and/or Family Agrees t: Yes Safety Risks/Education Patient Education: Gait Training, Transfer Techniques, Correct Positioning, Safety Issues Teaching Recipient: Patient Teaching Methods: Demonstration, Discussion Response to Teaching: Reinforcement Needed Time/GCodes Time In: 1015 Time Out: 1028 Total Billed Treatment Time: 13 Total Billed Treatment 1 visit FA LUCI COLEMAN PT May 09, 2020 10:57
--- NOTE | 2020-05-09 11:27 | Progress Note - Hospitalist ---
Subjective HPI/CC On Admission Date Seen by Provider: May 09, 2020 Time Seen by Provider: 10:30 Subjective/Events-last exam He is a poor historian. He denies any complaints. He denies pain. He denies shortness of breath. Focused Exam Lactate Level 05/06/20 11:26: Lactic Acid Level 2.03*H 05/06/20 14:10: Lactic Acid Level 1.05 Time of Focused Exam: 13:38 Objective Exam Vital Signs Vital Signs Date Time Temp Pulse Resp B/P (MAP) Pulse Ox O2 Delivery O2 Flow Rate FiO2 05/09/20 08:00 35.2 48 20 160/69 (99) 92 Nasal Cannula 4.00 Capillary Refill : Less Than 3 Seconds General Appearance: No Apparent Distress, WD/WN Respiratory: Lungs Clear, Normal Breath Sounds, No Respiratory Distress Cardiovascular: No Edema, No Murmur, Bradycardia (regular rhythm) Gastrointestinal: Normal Bowel Sounds, Non Tender, Soft Extremity: Normal Inspection, Non Tender, No Pedal Edema Neurologic/Psychiatric: Alert, No Motor/Sensory Deficits, Normal Mood/Affect, Disoriented Skin: Normal Color, Warm/Dry Results/Procedures Lab Laboratory Tests 05/09/20 06:33 05/09/20 07:49 Patient resulted labs reviewed. Imaging: Reviewed Imaging Report Assessment/Plan Assessment and Plan Assess & Plan/Chief Complaint Acute respiratory failure secondary to COVID -19 Symptoms started on 04/24 Decadron Outside of window for Remdesivir s/p 1 unit convalescent plasma Continue supplemental oxygen Lovenox therapeutic PNA Procal borderline Continue Zosyn IS Bradycardia Cardiology consulted, appreciate assistance No intervention needed at this time Monitor on telemetry Anemia Stable, monitor Chronic dementia Clinically significant, no acute management needs Diagnosis/Problems Diagnosis/Problems (1) Acute respiratory failure due to COVID-19 (2) Pneumonia Status: Acute Qualifiers: Pneumonia type: due to unspecified organism Laterality: left Lung location: lower lobe of lung Qualified Codes: J18.9 - Pneumonia, unspecified organism (3) Dementia Status: Chronic Clinical Quality Measures DVT/VTE Risk/Contraindication: Risk Factor Score Per Nursin RFS Level Per Nursing on Admit: 4+=Very High EDISON SANTIAGO MD May 09, 2020 11:27
[2020-05-09 12:30] VITALS: BP 160/69
[2020-05-09 16:00] VITALS: BP 139/65
--- NOTE | 2020-05-09 17:20 | Physician Query Clarification ---
"Physician Query-General Query to Physician: The medical record reflects the following clinical scenario: History/Risk factors: COVID 19, Pneumonia Clinical Findings: LA 2.03, Temp 37.5, RR 20-22 Treatment: ER treatment: IV fluid boluses, IV ABX, IV Steroids Question: Do you agree with the impression of Sepsis per ER physician Greyson Bermudez? If you agree, please document in Progress Notes or Discharge Summary. 1. Yes; will document Sepsis present on admission due to Covid 19/pneumonia in the Progress Notes 2. No; will continue to document Covid 19/Pneumonia in the Progress Notes 3. Other; will document explanation of clinical findings 4. Clinically undetermined; no explanation for clinical findings Please remember a lack of response to the above will prompt a phone page by CDI/coding staff. In responding to this query, please exercise your independent professional judgment. The purpose of this communication is to more accurately reflect the complexity of your patients condition. The fact that a question is asked does not imply that any particular answer is desired or expected. Thank you for timely response to this clarification. Colt Sherwood, MSN, RN RN Specialist-Clinical Doc Improvement CD -Health Info Mgmt Operations [address] [facility] t: [phone] | f: [phone] If you are unable to reach me at my extension, I may be working from home. Please contact me at [phone] PHYSICIAN RESPONSE: Based on the clinical findings in the record, please respond to the query above on this document as an addendum. Physician Response: Physician Response 2 If you have questions please contact: Stewardess Supervisor: Ext: Thank you for your time and cooperation. Clinical [employer] Supervisor/Stewardess Supervisor This is a permanent part of the medical record COLT SHERWOOD May 09, 2020 17:20 EDISON SANTIAGO MD May 11, 2020 10:52"
[2020-05-09 19:45] VITALS: BP 146/74
[2020-05-10 00:13] VITALS: BP 159/64
[2020-05-10] MEDS: RT-ALBUTEROL INHALER HFA (VENTOLIN HFA) 18 GM IH SCH ×5 (01:53→19:39)
[2020-05-10] MEDS: PIPERACILLIN/TAZO 4.5 GM/NS 100 ML IV SCH ×6 (04:01→22:04)
[2020-05-10 04:05] VITALS: BP 144/60
[2020-05-10] MEDS: LACTATED RINGERS 1,000 ML IV SCH (06:51)
[2020-05-10 07:28] LABS: BASOPHILS % (AUTO) 0 % (0-10); EOSINOPHILS % (AUTO) 0 % (0-10); HEMATOCRIT 30 % (40-54); HEMOGLOBIN 9.6 g/dL (13.3-17.7); LYMPHOCYTES # (AUTO) 0.6 10^3/uL (1.0-4.0); LYMPHOCYTES % (AUTO) 16 % (12-44); MEAN CORPUSCULAR HEMOGLOBIN 34 pg (25-34); MEAN CORPUSCULAR HGB CONC 33 g/dL (32-36); MEAN CORPUSCULAR VOLUME 105 fL (80-99); MEAN PLATELET VOLUME 9.6 fL (9.0-12.2); MONOCYTES # (AUTO) 0.2 10^3/uL (0.0-1.0); MONOCYTES % (AUTO) 4 % (0-12); NEUTROPHILS # (AUTO) 2.7 10^3/uL (1.8-7.8); NEUTROPHILS % (AUTO) 75 % (42-75); PLATELET COUNT 145 10^3/uL (130-400); WHITE BLOOD COUNT 3.6 10^3/uL (4.3-11.0)
[2020-05-10 07:48] LABS: ALBUMIN 2.8 GM/DL (3.2-4.5); BILIRUBIN,TOTAL 0.6 MG/DL (0.1-1.0); CALCIUM 7.8 MG/DL (8.5-10.1); CREATININE SERUM 1.23 MG/DL (0.60-1.30); MAGNESIUM 1.9 MG/DL (1.6-2.4); PHOSPHORUS 1.7 MG/DL (2.3-4.7); POTASSIUM 3.8 MMOL/L (3.6-5.0); TOTAL PROTEIN 5.1 GM/DL (6.4-8.2)
[2020-05-10] MEDS: dexAMETHasone 6 MG TAB (DECADRON) PO SCH (08:20)
[2020-05-10] MEDS: PANTOPRAZOLE 40 MG (PROTONIX) TAB PO SCH (08:20)
[2020-05-10] MEDS: ENOXAPARIN 100 MG/1 ML (LOVENOX) SYR SC SCH ×2 (08:20→20:15)
--- NOTE | 2020-05-10 08:30 | NUR ---
O2 SAT 82 WHEN UP TO BSC, O2 ON PER NC AT 7 LITER, O2 INCREASED TO 9 LITERS AND RT NOTIFIED, O2 SAT AT 9 LITER 92 PERCENT PRODUCTIVE COUGH YELLOW SPUTUM
[2020-05-10 08:33] VITALS: BP 147/65
[2020-05-10] MEDS ORDERED: SODIUM PHOSPHATE INJ 30 MM in NS (IVPB) 250 ML IV NR (11:00)
--- NOTE | 2020-05-10 11:05 | Progress Note - Hospitalist ---
Subjective HPI/CC On Admission Date Seen by Provider: May 10, 2020 Time Seen by Provider: 10:30 Subjective/Events-last exam He is confused. He is a poor historian. He appears uncomfortable, but has no complaints. Focused Exam Time of Focused Exam: 13:38 Objective Exam Vital Signs Vital Signs Date Time Temp Pulse Resp B/P (MAP) Pulse Ox O2 Delivery O2 Flow Rate FiO2 05/10/20 10:23 90 Nasal Cannula 4.00 05/10/20 08:33 35.9 59 24 147/65 (92) Capillary Refill : Less Than 3 Seconds General Appearance: Chronically ill, Mild Distress (uncomfortable) Respiratory: No Accessory Muscle Use, No Respiratory Distress, Rhonci Cardiovascular: Regular Rate, Rhythm, No Edema, No Murmur Gastrointestinal: Normal Bowel Sounds, Non Tender, Soft Extremity: Normal Inspection, Non Tender, No Pedal Edema Neurologic/Psychiatric: Alert, Disoriented Skin: Normal Color, Warm/Dry Results/Procedures Lab Laboratory Tests 05/10/20 07:25 Patient resulted labs reviewed. Imaging: Reviewed Imaging Report Assessment/Plan Assessment and Plan Assess & Plan/Chief Complaint Acute respiratory failure secondary to COVID -19 Symptoms started on 04/24 Decadron Outside of window for Remdesivir s/p 1 unit convalescent plasma Continue supplemental oxygen, increasing requirements May need Vapotherm Lovenox therapeutic Check BNP May need Lasix PNA Procal borderline Continue Zosyn IS Bradycardia Cardiology consulted, appreciate assistance No intervention needed at this time Monitor on telemetry Anemia Stable, monitor Chronic dementia Clinically significant, no acute management needs Diagnosis/Problems Diagnosis/Problems (1) Acute respiratory failure due to COVID-19 (2) Pneumonia Status: Acute Qualifiers: Pneumonia type: due to unspecified organism Laterality: left Lung location: lower lobe of lung Qualified Codes: J18.9 - Pneumonia, unspecified organism (3) Dementia Status: Chronic Clinical Quality Measures DVT/VTE Risk/Contraindication: Risk Factor Score Per Nursin RFS Level Per Nursing on Admit: 4+=Very High EDISON SANTIAGO MD May 10, 2020 11:05
--- NOTE | 2020-05-10 11:09 | Physical Therapy Daily Note ---
PT Daily Note-Current Subjective Patient initially refused then began cursing. Reluctantly agreed to PT yelling and cussing the entire treatment. Mental Status Patient Orientation: Person, Time, Situation Attachments: Oxygen, IV Transfers SCALE: Activities may be completed with or without assistive devices. 3-Llkopxohlg-akidjhg completes the activity by him/herself with no assistance f rom a helper. 5-Set-up or Clean-up Assistance-helper sets up or cleans up; patient completes activity. [place] assists only prior to or following the activity. 4-Supervision or Touching Assistance-helper provides verbal cues and/or touching/steadying and/or contact guard assistance as patient completes activity. Assistance may be provided throughout the activity or intermittently. 3-Partial/Moderate Assistance-helper does LESS THAN HALF the effort. [place] lifts, holds or supports trunk or limbs, but provides less than half the effort. 2-Substantial/Maximal Assistance-helper does MORE THAN HALF the effort. [place] lifts or holds trunk or limbs and provides more than half the effort. 9-Vkxgpudze-pkbthr does ALL the effort. Patient does none of the effort to complete the activity. Or, the assistance of 2 or more helpers is required for the patient to complete the activity. If activity was not attempted, code reason: 7-Patient Refused. 9-Not Applicable-not attempted and the patient did not perform the activity before the current illness, exacerbation or injury. 10-Not Attempted due to Environmental Limitations-(lack of equipment, weather restraints, etc.). 88-Not Attempted due to Medical Conditions or Safety Concerns. Roll Left & Right (QC): 6 Sit to Lying (QC): 6 Lying to Sitting/Side of Bed(Q: 6 Sit to Stand (QC): 5 patient stood EOB to use urinal/sit to stand x 3 Gait Training Does the Patient Walk?: Yes Distance: 10' Walk 10 feet (QC): 5 Gait Assistive Device: None Assessment Patient returned to bed with rails up and alarm activated. Call light and phone in situ. PT Laboratory Director Goals Laboratory Director Goals PT Longterm Goals Time Frame: May 21, 2020 Roll Left & Right (QC): 6 Sit to Lying (QC): 6 Lying-Sitting on Side/Bed(QC): 6 Sit to Stand (QC): 6 Chair/Mot-uc-Shxuk Xfer(QC): 6 Walk 50ft with 2 Turns (QC): 6 Walk 150 ft (QC): 5 PT Plan Treatment/Plan Treatment Plan: Continue Plan of Care Treatment Plan: Bed Mobility, Education, Functional Activity Lin, Functional Strength, Gait, Safety, Therapeutic Exercise, Transfers Treatment Duration: May 21, 2020 Frequency: 6 times per week Estimated Hrs Per Day: .5 hour per day Patient and/or Family Agrees t: Yes Time/GCodes Time In: 1002 Time Out: 1012 Total Billed Treatment Time: 10 Total Billed Treatment 1 visit FA 10 min GANESH JONAS PT May 10, 2020 11:09
[2020-05-10 12:00] VITALS: BP 116/56
[2020-05-10 15:15] VITALS: BP 151/65
[2020-05-10 19:42] VITALS: BP 164/79
[2020-05-10] MEDS: RT-ALBUTEROL INHALER HFA (VENTOLIN HFA) 18 GM IH PRN (22:21)
[2020-05-11] VITALS: BP 136/65
[2020-05-11] MEDS: RT-ALBUTEROL INHALER HFA (VENTOLIN HFA) 18 GM IH PRN (02:36)
[2020-05-11] MEDS: PIPERACILLIN/TAZO 4.5 GM/NS 100 ML IV SCH ×4 (03:57→11:40)
[2020-05-11 03:58] VITALS: BP 151/67
[2020-05-11] MEDS: RT-ALBUTEROL INHALER HFA (VENTOLIN HFA) 18 GM IH SCH ×7 (07:19→22:00)
[2020-05-11 08:00] VITALS: BP 142/65
[2020-05-11] MEDS: PANTOPRAZOLE 40 MG (PROTONIX) TAB PO SCH (08:55)
[2020-05-11] MEDS: dexAMETHasone 6 MG TAB (DECADRON) PO SCH (08:55)
[2020-05-11] MEDS: ENOXAPARIN 100 MG/1 ML (LOVENOX) SYR SC SCH ×2 (08:55→20:20)
--- NOTE | 2020-05-11 09:44 | Progress Note - Hospitalist ---
Subjective HPI/CC On Admission Date Seen by Provider: May 11, 2020 Time Seen by Provider: 08:40 Subjective/Events-last exam He feels much better today. He is asking to go home. He is not feeling short of breath. He is eating his breakfast. He denies pain. Focused Exam Time of Focused Exam: 13:38 Objective Exam Vital Signs Vital Signs Date Time Temp Pulse Resp B/P (MAP) Pulse Ox O2 Delivery O2 Flow Rate FiO2 05/11/20 08:00 37.0 68 18 142/65 (90) 97 High Flow N/C 12.00 Capillary Refill : Less Than 3 Seconds General Appearance: No Apparent Distress, Chronically ill Respiratory: Lungs Clear, Normal Breath Sounds, No Respiratory Distress Cardiovascular: Regular Rate, Rhythm, No Edema, No Murmur Gastrointestinal: Normal Bowel Sounds, Non Tender, Soft Extremity: Normal Inspection, Non Tender, No Pedal Edema Neurologic/Psychiatric: Alert, No Motor/Sensory Deficits Skin: Normal Color, Warm/Dry Results/Procedures Lab Patient resulted labs reviewed. Imaging: Reviewed Imaging Report Assessment/Plan Assessment and Plan Assess & Plan/Chief Complaint Acute respiratory failure secondary to COVID -19 Symptoms started on 04/24 Decadron Outside of window for Remdesivir s/p 1 unit convalescent plasma Continue supplemental oxygen, weaning as able Lovenox therapeutic PNA Procal borderline Continue Zosyn IS Bradycardia Cardiology consulted, appreciate assistance No intervention needed at this time Monitor on telemetry Anemia Stable, monitor Chronic dementia Clinically significant, no acute management needs Diagnosis/Problems Diagnosis/Problems (1) Acute respiratory failure due to COVID-19 (2) Pneumonia Status: Acute Qualifiers: Pneumonia type: due to unspecified organism Laterality: left Lung location: lower lobe of lung Qualified Codes: J18.9 - Pneumonia, unspecified organism (3) Dementia Status: Chronic Clinical Quality Measures DVT/VTE Risk/Contraindication: Risk Factor Score Per Nursin RFS Level Per Nursing on Admit: 4+=Very High EDISON SANTIAGO MD May 11, 2020 09:44
--- NOTE | 2020-05-11 10:36 | Physical Therapy Daily Note ---
PT Daily Note-Current Subjective Patient yells and moans when PT requests OOB activity. PT educated patient on importance of OOB to improve pulmonary function. Patient reluctantly agrees. Mental Status Patient Orientation: Person Attachments: Oxygen (6L HF) Transfers SCALE: Activities may be completed with or without assistive devices. 4-Ngnxvclzvv-xjdlaeu completes the activity by him/herself with no assistance from a helper. 5-Set-up or Clean-up Assistance-helper sets up or cleans up; patient completes activity. [place] assists only prior to or following the activity. 4-Supervision or Touching Assistance-helper provides verbal cues and/or touching/steadying and/or contact guard assistance as patient completes activity. Assistance may be provided throughout the activity or intermittently. 3-Partial/Moderate Assistance-helper does LESS THAN HALF the effort. [place] lifts, holds or supports trunk or limbs, but provides less than half the effort. 2-Substantial/Maximal Assistance-helper does MORE THAN HALF the effort. [place] lifts or holds trunk or limbs and provides more than half the effort. 6-Ehqfwxcmo-givxsl does ALL the effort. Patient does none of the effort to complete the activity. Or, the assistance of 2 or more helpers is required for the patient to complete the activity. If activity was not attempted, code reason: 7-Patient Refused. 9-Not Applicable-not attempted and the patient did not perform the activity before the current illness, exacerbation or injury. 10-Not Attempted due to Environmental Limitations-(lack of equipment, weather restraints, etc.). 88-Not Attempted due to Medical Conditions or Safety Concerns. Lying to Sitting/Side of Bed(Q: 5 Sit to Stand (QC): 5 (x 4 sets to cleanse and to perform exercises) Chair/Tis-me-Znxki Xfer(QC): 5 Gait Training Does the Patient Walk?: Yes Distance: 5' Gait Assistive Device: None patient declined distance ambulation Exercises Supine Ex: Ankle pumps, Heel Slides Supine Reps: 12 Seated Therapy Exercises: Ankle pumps, Long arc quads, Hip flexion Seated Reps: 12 Assessment Patient requires much encouragement to participate with and complete therapy. Patient demonstrates capable mobility, however, appears to self limit. Increase activity as patient allows. PT Hearth Feeder Goals Halfway Goals PT Halfway Goals Time Frame: May 21, 2020 Roll Left & Right (QC): 6 Sit to Lying (QC): 6 Lying-Sitting on Side/Bed(QC): 6 Sit to Stand (QC): 6 Chair/Kle-de-Ayxoj Xfer(QC): 6 Walk 50ft with 2 Turns (QC): 6 Walk 150 ft (QC): 5 PT Plan Treatment/Plan Treatment Plan: Continue Plan of Care Treatment Plan: Bed Mobility, Education, Functional Activity Lin, Functional Strength, Gait, Safety, Therapeutic Exercise, Transfers Treatment Duration: May 21, 2020 Frequency: 6 times per week Estimated Hrs Per Day: .5 hour per day Patient and/or Family Agrees t: Yes Time/GCodes Time In: 1004 Time Out: 1027 Total Billed Treatment Time: 23 Total Billed Treatment 1 visit EX 12 min FA 11 min GANESH JONAS PT May 11, 2020 10:36
[2020-05-11 16:00] VITALS: BP 150/70
[2020-05-11 23:34] VITALS: BP 152/60
[2020-05-12] VITALS (13 sets, daily range): BP systolic 108–138; BP diastolic 46–76
[2020-05-12] MEDS: RT-ALBUTEROL INHALER HFA (VENTOLIN HFA) 18 GM IH SCH ×6 (00:50→22:34)
--- NOTE | 2020-05-12 00:50 | NUR ---
0020 HELPING PT TO THE BSC, O2 DROPPED TO 75%. O2 INCREASED TO 15L HIGH FLOW PER NC. VITAL SIGNS FOLLOW BP 127/72, HR 112, 88% AT 15L. PT VERY SOB. RT NOTIFIED. 0030 RT HERE TO SE PT. INHALER GIVEN TO PT. O2 STILL 89%. DR SANTIAGO NOTIFIED FROM SITUATION AND ORDER TO STAR PT ON VAPOTHERM. VAPOTHERM SETTING 30L AND 70% FIO2. VITAL SIGNS: 128/65, HR 90,O2 94%. WILL CONTINUO TO MONITOR
[2020-05-12 07:07] LABS: ALBUMIN 2.7 GM/DL (3.2-4.5); POTASSIUM 3.7 MMOL/L (3.6-5.0)
[2020-05-12 07:08] LABS: CALCIUM 7.6 MG/DL (8.5-10.1)
[2020-05-12 07:10] LABS: TOTAL PROTEIN 4.4 GM/DL (6.4-8.2)
[2020-05-12 07:11] LABS: BILIRUBIN,TOTAL 0.4 MG/DL (0.1-1.0)
[2020-05-12 07:13] LABS: CREATININE SERUM 1.53 MG/DL (0.60-1.30); PHOSPHORUS 2.7 MG/DL (2.3-4.7)
[2020-05-12 07:16] LABS: MAGNESIUM 1.9 MG/DL (1.6-2.4)
[2020-05-12 07:22] LABS: BASOPHILS % (AUTO) 0 % (0-10); EOSINOPHILS % (AUTO) 0 % (0-10); LYMPHOCYTES # (AUTO) 0.5 10^3/uL (1.0-4.0); LYMPHOCYTES % (AUTO) 11 % (12-44); MEAN CORPUSCULAR HEMOGLOBIN 34 pg (25-34); MEAN CORPUSCULAR HGB CONC 33 g/dL (32-36); MEAN CORPUSCULAR VOLUME 103 fL (80-99); MEAN PLATELET VOLUME 9.7 fL (9.0-12.2); MONOCYTES # (AUTO) 0.2 10^3/uL (0.0-1.0); MONOCYTES % (AUTO) 4 % (0-12); NEUTROPHILS # (AUTO) 3.9 10^3/uL (1.8-7.8); NEUTROPHILS % (AUTO) 80 % (42-75); PLATELET COUNT 152 10^3/uL (130-400); WHITE BLOOD COUNT 4.9 10^3/uL (4.3-11.0)
[2020-05-12 07:27] LABS: HEMATOCRIT 16 % (40-54); HEMOGLOBIN 5.4 g/dL (13.3-17.7)
[2020-05-12] MEDS ORDERED: NS IV 500 ML 500 ML IV SCH ×2 (07:43→07:45)
[2020-05-12] MEDS: PANTOPRAZOLE 40 MG (PROTONIX) VIAL IV SCH ×2 (09:41→20:23)
[2020-05-12] MEDS: dexAMETHasone 6 MG TAB (DECADRON) PO SCH (09:41)
--- NOTE | 2020-05-12 10:07 | Physical Therapy Daily Note ---
PT Daily Note-Current Subjective "this is hell." Agrees to sit up EOB. Transfers SCALE: Activities may be completed with or without assistive devices. 2-Engzihmfio-npobxmj completes the activity by him/herself with no assistance from a helper. 5-Set-up or Clean-up Assistance-helper sets up or cleans up; patient completes activity. [place] assists only prior to or following the activity. 4-Supervision or Touching Assistance-helper provides verbal cues and/or touching/steadying and/or contact guard assistance as patient completes activity. Assistance may be provided throughout the activity or intermittently. 3-Partial/Moderate Assistance-helper does LESS THAN HALF the effort. [place] lifts, holds or supports trunk or limbs, but provides less than half the effort. 2-Substantial/Maximal Assistance-helper does MORE THAN HALF the effort. [place] lifts or holds trunk or limbs and provides more than half the effort. 8-Btovsjuaq-mdfnlo does ALL the effort. Patient does none of the effort to complete the activity. Or, the assistance of 2 or more helpers is required for the patient to complete the activity. If activity was not attempted, code reason: 7-Patient Refused. 9-Not Applicable-not attempted and the patient did not perform the activity before the current illness, exacerbation or injury. 10-Not Attempted due to Environmental Limitations-(lack of equipment, weather restraints, etc.). 88-Not Attempted due to Medical Conditions or Safety Concerns. Sit to Lying (QC): 4 Lying to Sitting/Side of Bed(Q: 3 Sit to Stand (QC): 3 (min to mod assist to partially stand x 3 reps. ) Sat EOB several minutes. Urniated in urinal with assist. Drank some ensure. Assisted pt to wash his hands and face. Returned to bed after treatment. Pt was eating grapes with HOB elevated. Vapotherm in place. Bed alarm activated. Needs met. Pt speaking to his on the phone as this therapist left. Assessment Current Status: Good Progress Pt is impulsive. Needs heavy cues for safety. Tolerated up right well. Impulsive. In bed post treatment with needs met and alarm activated and vapotherm in place. PT Penitentiary Goals Penitentiary Goals PT Prop And Scenery Maker Goals Time Frame: May 21, 2020 Roll Left & Right (QC): 6 Sit to Lying (QC): 6 Lying-Sitting on Side/Bed(QC): 6 Sit to Stand (QC): 6 Chair/Bez-bz-Pcest Xfer(QC): 6 Walk 50ft with 2 Turns (QC): 6 Walk 150 ft (QC): 5 PT Plan Problem List Problem List: Activity Tolerance, Functional Strength, Safety Treatment/Plan Treatment Plan: Continue Plan of Care Treatment Plan: Bed Mobility, Education, Functional Activity Lin, Functional Strength, Gait, Safety, Therapeutic Exercise, Transfers Treatment Duration: May 21, 2020 Frequency: 6 times per week Estimated Hrs Per Day: .5 hour per day Patient and/or Family Agrees t: Yes Safety Risks/Education Patient Education: Safety Issues Teaching Recipient: Patient Teaching Methods: Discussion Response to Teaching: Reinforcement Needed Discharge Recommendations Therapy Discharge Recommendati: Post Acute PT Time/GCodes Time In: 850 Time Out: 915 Total Billed Treatment Time: 25 Total Billed Treatment visit FA 25 JONATAN KING PT May 12, 2020 10:07
--- NOTE | 2020-05-12 12:00 | CONSULTATION REPORT ---
DATE OF SERVICE: ADMITTING PHYSICIAN: Dr. Beltran Dove. HISTORY OF PRESENT ILLNESS: The patient is an 89-year-old male who is a poor historian. He was diagnosed with COVID-19 one week before admission and presented to the Emergency Department in [place], [place] with shortness of breath, nausea, vomiting. He was found to be hypoxic and was placed on oxygen nasal cannula. This worsened and he was placed on a mask and it was decided to then proceed with a transfer to [facility]. Since being admitted, he has improved from a pulmonary standpoint and is currently on Vapotherm, humidified high flow oxygen at 40%. His hemoglobin has been stable; however, did drop considerably today to 5.7. He does not report any abdominal pain as well as no nausea, vomiting as well as no hematemesis, no coffee ground emesis. He cannot remember when his last bowel movement was. However, staff does not report any red blood per rectum. PAST MEDICAL HISTORY: Hypertension. PAST SURGICAL HISTORY: Open appendectomy. ALLERGIES: CODEINE. MEDICATIONS: Lisinopril 20 mg daily. SOCIAL HISTORY: Previous smoke, quit many years ago. Negative alcohol. FAMILY HISTORY: Noncontributory. VITAL SIGNS: Temperature 36.2, blood pressure 118/60, pulse 75, respirations 22, pulse ox 99% on Vapotherm. REVIEW OF SYSTEMS: An elderly male who is awake and alert; however, is a poor historian. He is currently not experiencing any shortness of breath or difficulty breathing. No chest pain, palpitations, diaphoresis. No nausea, vomiting. No hematemesis, no coffee ground emesis. Unsure when his last bowel movement was, and staff does not report any rectal bleeding. No fever, chills, no recent inadvertent weight loss. All other review of systems negative. PHYSICAL EXAMINATION: CHEST: A few scattered rales bilaterally. Decreased breath sounds at lung bases. HEART: Regular, no murmurs. EXTREMITIES: No lower extremity edema, negative Homans sign. HEENT: No scleral icterus or cervical lymphadenopathy. ABDOMEN: Soft, nontender, nondistended. SKIN: Warm, dry. LABORATORY DATA: WBC 4.9, hemoglobin 5.4, hematocrit 16, platelets 152. BUN 48, creatinine 1.53. ASSESSMENT AND PLAN: An 89-year-old male with anemia of unknown etiology. There does not appear to be any clinical signs of bleeding and at this time, he appears asymptomatic. He is receiving 2 units of packed red blood cells and we will get a followup hemoglobin and hematocrit. With his COVID positivity and respiratory status, we will await doing any endoscopy; however, once stable, we will recommend an EGD and colonoscopy either inpatient versus outpatient if continues to be stable. Job ID: [id number] DocumentID: [id number] Dictated Date: 05/12/2020 11:35:01 Boardmarker Date: 05/12/2020 11:59:55 Dictated By: LIDIA HALL MD
--- NOTE | 2020-05-12 12:47 | Progress Note - Hospitalist ---
Subjective HPI/CC On Admission Date Seen by Provider: May 12, 2020 Time Seen by Provider: 10:10 Subjective/Events-last exam He is tired this morning. He reports feeling short of breath. He hasn't noticed any blood in his stools. He denies any abdominal pain. He denies chest pain. Focused Exam Time of Focused Exam: 13:38 Objective Exam Vital Signs Vital Signs Date Time Temp Pulse Resp B/P (MAP) Pulse Ox O2 Delivery O2 Flow Rate FiO2 05/12/20 12:27 78 05/12/20 12:09 36.3 22 132/59 100 Vapotherm 05/12/20 12:00 30.00 55.00 05/12/20 09:55 55 Capillary Refill : Less Than 3 Seconds General Appearance: No Apparent Distress, Chronically ill Respiratory: Lungs Clear, Normal Breath Sounds, No Respiratory Distress Cardiovascular: Regular Rate, Rhythm, No Edema, No Murmur Gastrointestinal: Normal Bowel Sounds, Non Tender, Soft Extremity: Normal Inspection, Non Tender, No Pedal Edema Neurologic/Psychiatric: Alert, Normal Mood/Affect, Motor Weakness Skin: Normal Color, Warm/Dry Results/Procedures Lab Laboratory Tests 05/12/20 06:10 Patient resulted labs reviewed. Imaging: Reviewed Imaging Report Assessment/Plan Assessment and Plan Assess & Plan/Chief Complaint Acute respiratory failure secondary to COVID -19 Symptoms started on 04/24 Decadron Outside of window for Remdesivir s/p 1 unit convalescent plasma Transitioned to Vapotherm, worsening oxygen requirements Acute blood loss anemia Likely upper GI bleed Hgb 5.4 Obtain fecal occult blood Hold Lovenox Begin IV Protonix Transfuse 2 units PRBC Consult surgery, appreciate assistance PETE on CKD3 Likely due to GI bleed Transfuse and monitor Bradycardia Cardiology consulted, appreciate assistance No intervention needed at this time Monitor on telemetry Chronic dementia Clinically significant, no acute management needs DVT Prophylaxis: held due to GI bleeding PNA, resolved Diagnosis/Problems Diagnosis/Problems (1) Acute respiratory failure due to COVID-19 (2) Pneumonia Status: Acute Qualifiers: Pneumonia type: due to unspecified organism Laterality: left Lung location: lower lobe of lung Qualified Codes: J18.9 - Pneumonia, unspecified organism (3) Dementia Status: Chronic (4) Acute blood loss anemia Status: Acute (5) Upper GI bleed Status: Acute (6) Acute kidney injury superimposed on chronic kidney disease Status: Acute Clinical Quality Measures DVT/VTE Risk/Contraindication: Risk Factor Score Per Nursin RFS Level Per Nursing on Admit: 4+=Very High EDISON SANTIAGO MD May 12, 2020 12:47
[2020-05-12 18:33] LABS: HEMOGLOBIN 7.5 g/dL (13.3-17.7)
[2020-05-13 00:55] VITALS: BP 149/75
[2020-05-13 03:27] VITALS: BP 128/62
[2020-05-13] MEDS: RT-ALBUTEROL INHALER HFA (VENTOLIN HFA) 18 GM IH SCH ×6 (03:29→21:31)
[2020-05-13 06:11] LABS: BASOPHILS % (AUTO) 0 % (0-10); EOSINOPHILS % (AUTO) 0 % (0-10); HEMATOCRIT 22 % (40-54); HEMOGLOBIN 7.2 g/dL (13.3-17.7); LYMPHOCYTES # (AUTO) 0.6 10^3/uL (1.0-4.0); LYMPHOCYTES % (AUTO) 11 % (12-44); MEAN CORPUSCULAR HEMOGLOBIN 32 pg (25-34); MEAN CORPUSCULAR HGB CONC 33 g/dL (32-36); MEAN CORPUSCULAR VOLUME 99 fL (80-99); MEAN PLATELET VOLUME 9.6 fL (9.0-12.2); MONOCYTES # (AUTO) 0.2 10^3/uL (0.0-1.0); MONOCYTES % (AUTO) 4 % (0-12); NEUTROPHILS # (AUTO) 4.4 10^3/uL (1.8-7.8); NEUTROPHILS % (AUTO) 79 % (42-75); PLATELET COUNT 156 10^3/uL (130-400); WHITE BLOOD COUNT 5.6 10^3/uL (4.3-11.0)
[2020-05-13 06:42] LABS: ALBUMIN 2.7 GM/DL (3.2-4.5); BILIRUBIN,TOTAL 0.6 MG/DL (0.1-1.0); CALCIUM 7.7 MG/DL (8.5-10.1); CREATININE SERUM 1.48 MG/DL (0.60-1.30); MAGNESIUM 2.2 MG/DL (1.6-2.4); PHOSPHORUS 2.8 MG/DL (2.3-4.7); POTASSIUM 3.6 MMOL/L (3.6-5.0); TOTAL PROTEIN 4.7 GM/DL (6.4-8.2)
[2020-05-13] MEDS: dexAMETHasone 6 MG TAB (DECADRON) PO SCH (08:29)
[2020-05-13] MEDS: PANTOPRAZOLE 40 MG (PROTONIX) VIAL IV SCH ×2 (08:29→20:58)
[2020-05-13 08:35] VITALS: BP 159/68
--- NOTE | 2020-05-13 11:34 | Progress Note ---
Subjective Date Seen by a Provider: May 13, 2020 Time Seen by a Provider: 11:30 Subjective/Events-last exam doing well. did have one dark stool episode which may indicate upper GI bleed. Hb stable and on protonix. Focused Exam Time of Focused Exam: 13:38 Objective Exam Vital Signs Date Time Temp Pulse Resp B/P (MAP) Pulse Ox O2 Delivery O2 Flow Rate FiO2 05/13/20 11:12 95 High Flow N/C 5.00 05/13/20 09:30 93 High Flow N/C 7.00 05/13/20 08:35 35.9 63 22 159/68 (98) 91 High Flow N/C 5.00 05/13/20 07:03 95 High Flow N/C 5.00 05/13/20 07:00 52 05/13/20 03:27 36.4 72 22 128/62 (84) 92 High Flow N/C 4.00 05/13/20 01:00 63 05/13/20 00:55 36.7 52 20 149/75 (99) 92 High Flow N/C 10.00 05/12/20 22:35 96 High Flow N/C 5.00 05/12/20 21:02 36.6 52 20 131/62 (85) 97 High Flow N/C 10.00 05/12/20 21:00 High Flow N/C 6.00 05/12/20 20:00 36.6 52 20 131/62 (85) 97 High Flow N/C 10.00 05/12/20 19:00 73 05/12/20 18:57 95 Vapotherm 20.00 50 05/12/20 18:40 36.0 60 22 134/76 99 20.00 50 05/12/20 16:51 36.0 65 20 108/46 (66) 99 Vapotherm 20.00 50.00 05/12/20 15:35 36.0 65 98 05/12/20 15:25 36.1 73 22 121/56 97 Vapotherm 05/12/20 15:08 36.0 65 22 123/72 98 Vapotherm 20.00 50 05/12/20 14:37 100 Vapotherm 20.00 50 05/12/20 12:27 78 05/12/20 12:09 36.3 65 22 132/59 100 Vapotherm 05/12/20 12:00 36.0 80 22 129/59 (82) 100 High Flow N/C 30.00 55.00 I & O 05/13/20 07:00 Intake Total 2093 ml Output Total 500 ml Balance 1593 ml Capillary Refill : Less Than 3 Seconds General Appearance: No Apparent Distress HEENT: PERRL/EOMI Neck: Full Range of Motion Respiratory: Chest Non Tender, Decreased Breath Sounds, Rhonci Cardiovascular: Regular Rate, Rhythm Gastrointestinal: normal bowel sounds, non tender, soft Extremity: Normal Capillary Refill Neurologic/Psychiatric: Alert, Oriented x3 Skin: Normal Color Lymphatic: No Adenopathy Results Lab Laboratory Tests 05/12/20 14:00: Stool Occult Blood Immunoassay POSITIVEH 05/12/20 18:10: Hemoglobin 7.5#L, Hematocrit 23L 05/13/20 05:50: Hemoglobin 7.2L, Hematocrit 22L, White Blood Count 5.6, Red Blood Count 2.22L, Mean Corpuscular Volume 99, Mean Corpuscular Hemoglobin 32, Mean Corpuscular H emoglobin Concent 33, Red Cell Distribution Width 16.4H, Platelet Count 156, Mean Platelet Volume 9.6, Immature Granulocyte % (Auto) 6, Neutrophils (%) (Auto) 79H, Lymphocytes (%) (Auto) 11L, Monocytes (%) (Auto) 4, Eosinophils (%) (Auto) 0, Basophils (%) (Auto) 0, Neutrophils # (Auto) 4.4, Lymphocytes # (Auto) 0.6L, Monocytes # (Auto) 0.2, Eosinophils # (Auto) 0.0, Basophils # (Auto) 0.0, Immature Granulocyte # (Auto) 0.3H, Sodium Level 143, Potassium Level 3.6, Chloride Level 112H, Carbon Dioxide Level 22, Anion Gap 9, Blood Urea Nitrogen 40H, Creatinine 1.48H, Estimat Glomerular Filtration Rate 45, BUN/Creatinine Ratio 27, Glucose Level 94, Calcium Level 7.7L, Corrected Calcium 8.7, Phosphorus Level 2.8, Magnesium Level 2.2, Total Bilirubin 0.6, Aspartate Amino Transf (AST/SGOT) 38H, Alanine Aminotransferase (ALT/SGPT) 86H, Alkaline Phosphatase 40, Total Protein 4.7L, Albumin 2.7L Microbiology 05/07/20 MRSA Screen - Final, Complete MRSA not isolated 05/06/20 Urine Culture - Final, Complete NO GROWTH 05/06/20 Blood Culture - Final, Complete No growth Assessment/Plan Assessment/Plan Assess & Plan/Chief Complaint anemia with likely upper GI bleed. will continue monitor and med management. if stable may d/c home and will recommend OP EGD and colonoscopy. Clinical Quality Measures DVT/VTE Risk/Contraindication: Risk Factor Score Per Nursin RFS Level Per Nursing on Admit: 4+=Very High LIDIA HALL MD May 13, 2020 11:34
[2020-05-13 12:00] VITALS: BP 127/62
--- NOTE | 2020-05-13 13:35 | Progress Note - Hospitalist ---
Subjective HPI/CC On Admission Date Seen by Provider: May 13, 2020 Time Seen by Provider: 11:50 Subjective/Events-last exam he reports feeling better today. He is not feeling short of breath. He says he is having black stools. He has no other complaints or concerns. Focused Exam Time of Focused Exam: 13:38 Objective Exam Vital Signs Vital Signs Date Time Temp Pulse Resp B/P (MAP) Pulse Ox O2 Delivery O2 Flow Rate FiO2 05/13/20 12:53 68 05/13/20 12:00 35.4 20 127/62 (83) 95 High Flow N/C 7.00 05/12/20 18:57 50 Capillary Refill : Less Than 3 Seconds General Appearance: No Apparent Distress, Chronically ill Respiratory: Lungs Clear, Normal Breath Sounds, No Respiratory Distress Cardiovascular: Regular Rate, Rhythm, No Edema, No Murmur Gastrointestinal: Normal Bowel Sounds, Non Tender, Soft Extremity: Normal Inspection, Non Tender, No Pedal Edema Neurologic/Psychiatric: Alert, Normal Mood/Affect, Disoriented, Motor Weakness Skin: Normal Color, Warm/Dry Results/Procedures Lab Laboratory Tests 05/12/20 18:10 05/13/20 05:50 Patient resulted labs reviewed. Imaging: Reviewed Imaging Report Assessment/Plan Assessment and Plan Assess & Plan/Chief Complaint Acute respiratory failure secondary to COVID -19 Symptoms started on 04/24 Decadron Outside of window for Remdesivir s/p 1 unit convalescent plasma Transitioned back to nasal cannula, improving oxygen requirements Acute blood loss anemia Likely upper GI bleed Hgb 7.2 this morning, up from 5.4 yesterday Fecal occult blood positive Lovenox held IV Protonix BID s/p 2 units PRBC General surgery consulted, appreciate assistance No plan for endoscopy at this time PETE on CKD3 Likely ATN due to GI bleed Slightly improved today, Cr 1.48 Bradycardia Cardiology consulted, appreciate assistance No intervention needed at this time Monitor on telemetry Chronic dementia Clinically significant, no acute management needs DVT Prophylaxis: held due to GI bleeding PNA, resolved Diagnosis/Problems Diagnosis/Problems (1) Acute respiratory failure due to COVID-19 (2) Pneumonia Status: Acute Qualifiers: Pneumonia type: due to unspecified organism Laterality: left Lung location: lower lobe of lung Qualified Codes: J18.9 - Pneumonia, unspecified organism (3) Dementia Status: Chronic (4) Acute blood loss anemia Status: Acute (5) Upper GI bleed Status: Acute (6) Acute kidney injury superimposed on chronic kidney disease Status: Acute Clinical Quality Measures DVT/VTE Risk/Contraindication: Risk Factor Score Per Nursin RFS Level Per Nursing on Admit: 4+=Very High EDISON SANTIAGO MD May 13, 2020 13:35
[2020-05-13 16:24] VITALS: BP 164/70
--- NOTE | 2020-05-13 18:40 | NUR ---
PT URINATING 25-100ML AT A TIME, WITH AN OUTPUT OF 150ML AND INTAKE OF 760ML FROM [id number]. PT HAS URINATED 125ML SINCE 1400. BLADDER WAS SCANNED WITH 2ML PRESENT. DR SANTIAGO NOTIFIED AND GAVE ORDERS FOR 1 L LR AT 100ML/HR.
[2020-05-13] MEDS ORDERED: LACTATED RINGERS 1,000 ML IV SCH (18:45)
[2020-05-13] MEDS ORDERED: LACTATED RINGERS 1,000 ML IV ONE (18:57)
[2020-05-13 19:51] VITALS: BP 159/72
[2020-05-14] VITALS (7 sets, daily range): BP systolic 133–173; BP diastolic 60–84
[2020-05-14] MEDS: RT-ALBUTEROL INHALER HFA (VENTOLIN HFA) 18 GM IH SCH ×7 (02:41→21:30)
[2020-05-14 06:19] LABS: BASOPHILS % (AUTO) 0 % (0-10); EOSINOPHILS # (AUTO) 0.1 10^3/uL (0.0-0.3); EOSINOPHILS % (AUTO) 1 % (0-10); HEMATOCRIT 22 % (40-54); HEMOGLOBIN 7.2 g/dL (13.3-17.7); LYMPHOCYTES # (AUTO) 0.5 10^3/uL (1.0-4.0); LYMPHOCYTES % (AUTO) 9 % (12-44); MEAN CORPUSCULAR HEMOGLOBIN 33 pg (25-34); MEAN CORPUSCULAR HGB CONC 33 g/dL (32-36); MEAN CORPUSCULAR VOLUME 99 fL (80-99); MEAN PLATELET VOLUME 9.5 fL (9.0-12.2); MONOCYTES # (AUTO) 0.2 10^3/uL (0.0-1.0); MONOCYTES % (AUTO) 3 % (0-12); NEUTROPHILS # (AUTO) 4.6 10^3/uL (1.8-7.8); NEUTROPHILS % (AUTO) 82 % (42-75); PLATELET COUNT 129 10^3/uL (130-400); WHITE BLOOD COUNT 5.6 10^3/uL (4.3-11.0)
[2020-05-14 06:27] LABS: ALBUMIN 2.8 GM/DL (3.2-4.5); POTASSIUM 3.7 MMOL/L (3.6-5.0)
[2020-05-14 06:29] LABS: CALCIUM 7.7 MG/DL (8.5-10.1)
[2020-05-14 06:30] LABS: TOTAL PROTEIN 4.8 GM/DL (6.4-8.2)
[2020-05-14 06:32] LABS: BILIRUBIN,TOTAL 0.6 MG/DL (0.1-1.0)
[2020-05-14 06:33] LABS: PHOSPHORUS 2.6 MG/DL (2.3-4.7)
[2020-05-14 06:34] LABS: CREATININE SERUM 1.4 MG/DL (0.60-1.30)
[2020-05-14 06:37] LABS: MAGNESIUM 1.9 MG/DL (1.6-2.4)
[2020-05-14] MEDS: PANTOPRAZOLE 40 MG (PROTONIX) VIAL IV SCH (08:14)
[2020-05-14] MEDS: dexAMETHasone 6 MG TAB (DECADRON) PO SCH (08:14)
--- NOTE | 2020-05-14 09:37 | NUR ---
DR DANG NOTIFIED OF PTS CHANGE IN BEHAVIOR, MUCH MORE CONFUSED THIS AM. SHE ORDERED ABG. I CALLED GIRMA FOLEY TO LET HER KNOW OF THE ORDER AND SHE SAID SHE WOULD BE RIGHT DOWN TO DO IT.
[2020-05-14 10:19] LABS: ABG BASE EXCESS -1.1 MMOL/L (-2.5-2.5); ABG OXYGEN SATURATION 100 % (94-100); ABG PCO2 27 MMHG (35-45); ABG PH 7.51 (7.37-7.43); ABG PO2 146 MMHG (79-93); ABG TCO2 22.7 MMOL/L (21.0-31.0)
[2020-05-14 10:20] LABS: ALLENS TEST YES-POS; INSPIRED O2 7 L; VENTILATOR NO
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
[2020-05-14] MEDS ORDERED: HALOPERIDOL 5 MG/ML (HALDOL) VIAL IM PRN (12:00)
[2020-05-14] MEDS ORDERED: HALOPERIDOL 5 MG/ML (HALDOL) VIAL ONE (12:03)
--- NOTE | 2020-05-14 12:03 | Progress Note - Hospitalist ---
Subjective HPI/CC On Admission Date Seen by Provider: May 14, 2020 Time Seen by Provider: 11:59 Subjective/Events-last exam Pt napping when I entered the room. He states he is "dreaming" when I awoke him. No complaints. States a lot of people have been in his room today though. When I asked if I could do anything to help him he laughed and said "scratch my nuts." Focused Exam Time of Focused Exam: 13:38 Objective Exam Vital Signs Vital Signs Date Time Temp Pulse Resp B/P (MAP) Pulse Ox O2 Delivery O2 Flow Rate FiO2 05/14/20 11:44 36.3 56 20 173/72 (105) 96 High Flow N/C 5.00 05/12/20 18:57 50 Capillary Refill : Less Than 3 Seconds General Appearance: No Apparent Distress Respiratory: Lungs Clear, No Accessory Muscle Use, Other (on HFNC) Cardiovascular: Regular Rate, Rhythm, No Murmur Gastrointestinal: Normal Bowel Sounds, Non Tender, Soft Results/Procedures Lab Laboratory Tests 05/14/20 05:50 Patient resulted labs reviewed. Imaging: Reviewed Imaging Report Assessment/Plan Assessment and Plan Assess & Plan/Chief Complaint Acute respiratory failure secondary to COVID -19 Symptoms started on 04/24. Outside of window for Remdesivir Decadron s/p 1 unit convalescent plasma Continue to wean oxygen as able Acute blood loss anemia Likely upper GI bleed Hgb 7.2 this morning, stable from yesterday Fecal occult blood positive Lovenox held IV Protonix BID s/p 2 units PRBC General surgery consulted, appreciate assistance No plan for endoscopy at this time PETE on CKD3 Likely ATN due to GI bleed Creatinine essentially stable Bradycardia Cardiology consulted, appreciate assistance No intervention needed at this time Monitor on telemetry Chronic dementia Clinically significant, no acute management needs Had some increased confusion per RN this AM Check UA DVT Prophylaxis: held due to GI bleeding PNA, resolved Clinical Quality Measures DVT/VTE Risk/Contraindication: Risk Factor Score Per Nursin RFS Level Per Nursing on Admit: 4+=Very High CATALINO DANG MD May 14, 2020 12:03
[2020-05-14 12:07] LABS: BILIRUBIN,URINE NEGATIVE (NEGATIVE); CLARITY,URINE CLEAR; COLOR,URINE YELLOW; GLUCOSE, URINE (UA) NEGATIVE (NEGATIVE); KETONES,URINE NEGATIVE (NEGATIVE); LEUKOCYTE ESTERASE ,URINE NEGATIVE (NEGATIVE); NITRITE,URINE NEGATIVE (NEGATIVE); PH,URINE 5.5 (5-9); PROTEIN,URINE 1+ (NEGATIVE)
[2020-05-14 12:14] LABS: BACTERIA,URINE NEGATIVE /HPF
--- NOTE | 2020-05-14 14:02 | NUR ---
"RD ASSESSMENT PMHx: COVID-19; dementia; PT INTERACTION: Note pt is in COVID isolation and has dementia, per chart review. Note all diet information gathered for nutrition follow-up are per chart review. Note avg PO intake 22% x4d. Note last BM was 05/14, and pt not currently on bowel regimen. Note recent report of black stoools. Note recent 6# wt loss x8d. ABNORMAL NUTRITION-RELATED LAB VALUES LOW: Pro 4.8; alb 2.8 HIGH: Cl 114; BUN 31; cr 1.40; AST 44; ALT 104 Est. kcal needs: 1700 kcal | 20 kcal/kg Est. Pro needs: 68 g Pro | 0.8 g Pro/kg PES STATEMENT: Inadequate oral intake (NI-2.1) related to loss of appetite as evidenced by chart review | avg PO intake 22% x4d INTERVENTION: Continue with current diet order of Regular diet. Continue with current supplementation order of Ensure Enlive with niya TID, for increased kcal intake. Provides 350 kcal and 20 g Pro per serving. Would encourage pt to eat when able. Will continue to follow and reassess as pt needs, intake, and status change. Christina Massey, MS RD LD"
--- NOTE | 2020-05-14 15:08 | NUR ---
THIS RN SPOKE WITH PTS DAUGHTER YIFAN THIS AM AND THIS AFTERNOON. INFORMATION REGARDING VISITORS WAS GIVEN TO YIFAN BY THIS RN STATING COVID PTS CANT HAVE VISITORS AT THIS TIME. YIFAN WOULD ALSO LIKE FOR PT TO BE TRANSFERRED TO [facility] FOR SKILLED THERAPY. DR DANG AND MAEVE MARTINEZ NOTIFIED AND JUAN SAID SHE WOULD LOOK INTO IT. I ALSO LET THEM KNOW THAT YIFAN STATED PT HAD FIRST HAD SYMPTOMS OF COVID ON 04/24 AND TESTED POSITIVE IN [facility] ON 04/25. DR DANG AND JUAN MADE AWARE OF THESE DATES WELL.
--- NOTE | 2020-05-14 16:39 | NUR ---
SHIRA/MAEVE visited with the patient's daughter for social service consult. SHIRA/MAEVE was notified by primary care nurse that the patient's daughter Leslie requested to speak with this regarding swing bed. SHIRA/SS contacted Leslie ([phone]) to discuss plan. She reports that she would prefer her father to be closer to the family and home. The patient's wishes to visit him and would be able to better in [place]. Leslie verbalized she would like the patient to discharge to [facility]. CM/SS informed Leslie that this could send a referral for him and they would review for acceptance/denial. Leslie was unaware that they had to accept; she verbalized understanding. Leslie reports she will contact the patient's to give an update. SHIRA/SS contacted Camille Thomas ([phone]) at [facility] to make a referral. CM/SS informed Camille Thomas that patient tested positive for Covid on 04/25. She reports that they will accept the patient if they are out of their 14 day time period. Camille Thomas indicated that the patient would be a good candidate for their Swing Bed. SHIRA/SS faxed referral; awaiting acceptance/denial. SHIRA/MAEVE will continue to follow.
[2020-05-14] MEDS: PANTOPRAZOLE 40 MG (PROTONIX) TAB PO SCH (20:37)
[2020-05-15] MEDS: RT-ALBUTEROL INHALER HFA (VENTOLIN HFA) 18 GM IH SCH ×3 (02:11→10:58)
[2020-05-15 04:10] VITALS: BP 148/66
[2020-05-15 04:59] LABS: BASOPHILS % (AUTO) 0 % (0-10); EOSINOPHILS % (AUTO) 1 % (0-10); HEMATOCRIT 21 % (40-54); LYMPHOCYTES # (AUTO) 0.5 10^3/uL (1.0-4.0); LYMPHOCYTES % (AUTO) 10 % (12-44); MEAN CORPUSCULAR HGB CONC 33 g/dL (32-36); MEAN CORPUSCULAR VOLUME 102 fL (80-99); MEAN PLATELET VOLUME 9.4 fL (9.0-12.2); MONOCYTES # (AUTO) 0.2 10^3/uL (0.0-1.0); MONOCYTES % (AUTO) 4 % (0-12); NEUTROPHILS # (AUTO) 4.6 10^3/uL (1.8-7.8); NEUTROPHILS % (AUTO) 84 % (42-75); PLATELET COUNT 102 10^3/uL (130-400); WHITE BLOOD COUNT 5.5 10^3/uL (4.3-11.0)
[2020-05-15 05:09] LABS: MEAN CORPUSCULAR HEMOGLOBIN 34 pg (25-34)
[2020-05-15 05:17] LABS: ALBUMIN 2.7 GM/DL (3.2-4.5); POTASSIUM 3.6 MMOL/L (3.6-5.0)
[2020-05-15 05:18] LABS: CALCIUM 7.6 MG/DL (8.5-10.1)
[2020-05-15 05:20] LABS: TOTAL PROTEIN 4.5 GM/DL (6.4-8.2)
[2020-05-15 05:21] LABS: BILIRUBIN,TOTAL 0.6 MG/DL (0.1-1.0)
[2020-05-15 05:23] LABS: CREATININE SERUM 1.38 MG/DL (0.60-1.30); PHOSPHORUS 2.5 MG/DL (2.3-4.7)
[2020-05-15 08:00] VITALS: BP 133/58
[2020-05-15] MEDS: PANTOPRAZOLE 40 MG (PROTONIX) TAB PO SCH (09:03)
[2020-05-15] MEDS: dexAMETHasone 6 MG TAB (DECADRON) PO SCH (09:03)
--- NOTE | 2020-05-15 11:30 | Physical Therapy Daily Note ---
PT Daily Note-Current Subjective Patient remains confused but more cooperative on this date. Mental Status Patient Orientation: Confused Attachments: Oxygen Transfers SCALE: Activities may be completed with or without assistive devices. 4-Sdhpezessg-grdvlkl completes the activity by him/herself with no assistance from a helper. 5-Set-up or Clean-up Assistance-helper sets up or cleans up; patient completes activity. [place] assists only prior to or following the activity. 4-Supervision or Touching Assistance-helper provides verbal cues and/or touching/steadying and/or contact guard assistance as patient completes activity. Assistance may be provided throughout the activity or intermittently. 3-Partial/Moderate Assistance-helper does LESS THAN HALF the effort. [place] lifts, holds or supports trunk or limbs, but provides less than half the effort. 2-Substantial/Maximal Assistance-helper does MORE THAN HALF the effort. [place] lifts or holds trunk or limbs and provides more than half the effort. 8-Izpobantk-juicxn does ALL the effort. Patient does none of the effort to complete the activity. Or, the assistance of 2 or more helpers is required for the patient to complete the activity. If activity was not attempted, code reason: 7-Patient Refused. 9-Not Applicable-not attempted and the patient did not perform the activity before the current illness, exacerbation or injury. 10-Not Attempted due to Environmental Limitations-(lack of equipment, weather restraints, etc.). 88-Not Attempted due to Medical Conditions or Safety Concerns. Roll Left & Right (QC): 5 Lying to Sitting/Side of Bed(Q: 5 Sit to Stand (QC): 5 Chair/Cgd-sh-Rtugu Xfer(QC): 5 Gait Training Does the Patient Walk?: Yes Distance: 40' Walk 10 feet (QC): 3 Gait Assistive Device: None patient refuses FWW use and utilizes PT and bed rails for support Exercises Seated Therapy Exercises: Ankle pumps, Long arc quads, Hip flexion Seated Reps: 12 (AAROM with continuous VC's to complete task) Treatments PT assisted patient with eating ice cream. Assessment Patient improving slowly with gross motor skills. Patient remains confused. PT Value Advisor Goals Value Advisor Goals PT Shelter Goals Time Frame: May 21, 2020 Roll Left & Right (QC): 6 Sit to Lying (QC): 6 Lying-Sitting on Side/Bed(QC): 6 Sit to Stand (QC): 6 Chair/Xnu-iz-Gciss Xfer(QC): 6 Walk 50ft with 2 Turns (QC): 6 Walk 150 ft (QC): 5 PT Plan Treatment/Plan Treatment Plan: Continue Plan of Care Treatment Plan: Bed Mobility, Education, Functional Activity Lin, Functional Strength, Gait, Safety, Therapeutic Exercise, Transfers Treatment Duration: May 21, 2020 Frequency: 6 times per week Estimated Hrs Per Day: .5 hour per day Patient and/or Family Agrees t: Yes Time/GCodes Time In: 1006 Time Out: 1029 Total Billed Treatment Time: 23 Total Billed Treatment 1 visit FA x 2 23 min GANESH JONAS PT May 15, 2020 11:30
--- NOTE | 2020-05-15 11:41 | Discharge Inst-Simple/Standard ---
Discharge Inst-Standard Discharge Medications New, Converted or Re-Newed RX: Transmitted to Pharmacy Patient Instructions/Follow Up Plan of Care/Instructions/FU: Please continue to take your medications as written. Please follow up with your primary care doctor to follow up this hospital stay. Activity as Tolerated: Yes Discharge Diet: No Restrictions Return to The Hospital For: Chest pain, fever, shortness of breath, confusion, abdominal pain, if you feel you are getting worse. Planned Outpatient Orders/Ref. Pneu Vac Indicated: Yes CATALINO DANG MD May 15, 2020 11:38
--- NOTE | 2020-05-15 11:43 | Discharge Summary ---
Diagnosis/Chief Complaint Date of Admission May 06, 2020 at 13:30 Date of Discharge Discharge Date: May 15, 2020 Primary Care No,Local Physician Discharge Diagnosis (1) Acute respiratory failure due to COVID-19 (2) Pneumonia Status: Acute (3) Dementia Status: Chronic (4) Acute blood loss anemia Status: Acute (5) Upper GI bleed Status: Acute (6) Acute kidney injury superimposed on chronic kidney disease Status: Acute Discharge Summary Procedures/Consulations Dr Ruben Mansfield Discharge Physical Exam Allergies: Coded Allergies: codeine (Verified Allergy, Unknown, 05/06/20) Vitals & I&Os Vital Signs Date Time Temp Pulse Resp B/P (MAP) Pulse Ox O2 Delivery O2 Flow Rate FiO2 05/15/20 13:53 35.9 68 16 127/67 90 High Flow N/C 5.00 05/12/20 18:57 50 General Appearance: No Apparent Distress, Chronically ill Respiratory: Lungs Clear, No Accessory Muscle Use, Other (on 5lpm) Cardiovascular: Regular Rate, Rhythm, No Murmur Neurologic/Psychiatric: Alert Hospital Course Pt was admitted due to acute respiratory failure from COVID19. He required high flow oxygen via Vapotherm but was eventually able to be weaned down to 5lpm. He was treated with convalescent plasma and decadron but was outside the window for Remdesivir. He did have an acute GI bleed while admitted but responded to Protonix and hemoglobin stabilized. He was given two units of pRBCs. He was transferred to [facility] for swing bed as it was closer to his home and family. Labs (last 24 hrs) Laboratory Tests 05/15/20 04:10: White Blood Count 5.5, Red Blood Count 2.05L, Hemoglobin 7.0L, Hematocrit 21L, Mean Corpuscular Volume 102H, Mean Corpuscular Hemoglobin 34, Mean Corpuscular Hemoglobin Concent 33, Red Cell Distribution Width 16.3H, Platelet Count 102L, Mean Platelet Volume 9.4, Immature Granulocyte % (Auto) 2, Neutrophils (%) (Auto) 84H, Lymphocytes (%) (Auto) 10L, Monocytes (%) (Auto) 4, Eosinophils (%) (Auto) 1, Basophils (%) (Auto) 0, Neutrophils # (Auto) 4.6, Lymphocytes # (Auto) 0.5L, Monocytes # (Auto) 0.2, Eosinophils # (Auto) 0.0, Basophils # (Auto) 0.0, Immature Granulocyte # (Auto) 0.1, Sodium Level 141, Potassium Level 3.6, Chloride Level 112H, Carbon Dioxide Level 18L, Anion Gap 11, Blood Urea Nitrogen 28H, Creatinine 1.38H, Estimat Glomerular Filtration Rate 49, BUN/Creatinine Ratio 20, Glucose Level 78, Calcium Level 7.6L, Corrected Calcium 8.6, Phosphor us Level 2.5, Magnesium Level 2.0, Total Bilirubin 0.6, Aspartate Amino Transf (AST/SGOT) 31, Alanine Aminotransferase (ALT/SGPT) 84H, Alkaline Phosphatase 50, Total Protein 4.5L, Albumin 2.7L Microbiology 05/07/20 MRSA Screen - Final, Complete MRSA not isolated 05/06/20 Urine Culture - Final, Complete NO GROWTH 05/06/20 Blood Culture - Final, Complete No growth Patient resulted labs reviewed. Pending Labs Imaging: Reviewed Imaging Report Discussion & Recommendations Discharge Planning: >30 minutes discharge planning Discharge Home Medications: Active Scripts Active Reported Co Q-10 (Ubidecarenone) 100 Mg Capsule 100 Mg PO DAILY Vitamin D3 (Cholecalciferol (Vitamin D3)) 25 Mcg Tablet 25 Mcg PO DAILY Lisinopril 20 Mg Tablet 20 Mg PO DAILY Instructions to patient/family Please see electronic discharge instructions given to patient. Clinical Quality Measures DVT/VTE Risk/Contraindication: Risk Factor Score Per Nursin RFS Level Per Nursing on Admit: 4+=Very High Problem Qualifiers (1) Pneumonia: Pneumonia type: due to unspecified organism Laterality: left Lung location: lower lobe of lung Qualified Codes: J18.9 - Pneumonia, unspecified organism CATALINO DANG MD May 15, 2020 11:43
--- NOTE | 2020-05-15 11:49 | NUR ---
CM/MAEVE follow up. Plan: Patient will discharge to [facility] today 05/15. CM/SS contacted Camille Thomas the director of social services at facility. She reports that the physician is still looking it over and would like to do a doc to doc. CM/SS provided the contact information for Dr. Pandya. The patient was accepted. CM/SS gave the patient's primary care nurse Miesha the Nursing report number. The patient will be transported by [facility]. CM/SS will contact Daughter with a time of discharge. No further needs at this time.
[2020-05-15 12:00] VITALS: BP 127/67
[2020-05-15 13:53] VITALS: BP 127/67
== END 2020-05-15 13:47 | disposition swing bed (61) | DRG 177 ==
LOC: ER 11:10 → CSD 13:30 → 4TH 05-08 14:08
PROVIDERS: ADMIT Family Medicine; ATTEND Internal Medicine
PROC: XW13325 Transfusion of Convalescent Plasma (Nonautologous) into Peripheral Vein, Percutaneous Approach, New Technology Group 5 (ICD-10-PCS; principal; 2020-05-07)
DX: U07.1 COVID-19 (principal); J96.01 Acute respiratory failure with hypoxia; J12.89 Other viral pneumonia; D62 Acute posthemorrhagic anemia; N17.9 Acute kidney failure, unspecified; K92.1 Melena; N18.30 Chronic kidney disease, stage 3 unspecified; I12.9 Hypertensive chronic kidney disease with stage 1 through stage 4 chronic kidney disease, or unspecified chronic kidney disease; R00.1 Bradycardia, unspecified; F03.90 Unspecified dementia, unspecified severity, without behavioral disturbance, psychotic disturbance, mood disturbance, and anxiety; R79.89 Other specified abnormal findings of blood chemistry; R11.2 Nausea with vomiting, unspecified; Z99.81 Dependence on supplemental oxygen; Z87.891 Personal history of nicotine dependence
CPT/HCPCS: 36415; 36600; 51702; 71045; 80053; 81000; 82274; 82607; 82728; 82746; 82805; 83540; 83605; 83735; 83880; 84100; 84145; 84484; 85007; 85014; 85018; 85025; 85027; 85379; 85610; 85730; 86141; 86850; 86900; 86901; 86920; 87040; 87081; 87088; 87804; 93005; 94640; 94760; 96361; 96365; 96366; 96367; 96375